=== PATIENT | male | born 1945 | race Caucasian/White ===

== ENCOUNTER 2020-09-20 20:09 | Inpatient (IN) | payer MEDICARE, OTHER ==
[~2020-09-20] VITALS: Ht 177.8 cm; Wt 78.0 kg
--- NOTE | ~2020-09-20 | OP ---
[address] [address] OPERATIVE REPORT Name: ADRIANNA ARRIOLA Room: [address] IN M.R.#: [id number] Admission: 09/20/20 Attend Phys: Abdulaziz Whyte MD Discharge: Date of : 41 Report #: [id number] THIS REPORT FOR: //name// cc: Manny Ballard MD, John MD ~ CC: Abdulaziz Ballard DATE OF SERVICE: 09/22/2020 SURGEON: Daniel Hobson DPM PREOPERATIVE DIAGNOSIS: Septic arthritis with deep tissue infection, left first metatarsophalangeal joint. POSTOPERATIVE DIAGNOSIS: Septic arthritis with deep tissue infection, left first metatarsophalangeal joint. PROCEDURES: 1. Left partial first ray resection to include removal of the distal first metatarsal and left great toe and sesamoids. 2. Incision and drainage, left foot. 3. Pedicled skin flap, left foot. ANESTHESIA: MAC. INJECTABLES: 30 mL of a 1:1 mixture of 0.5% Marcaine plain and 1% lidocaine plain. HEMOSTASIS: Left pneumatic ankle tourniquet at 250 mmHg. ESTIMATED BLOOD LOSS: Less than 2 mL. SPECIMENS: Left great toe, left distal first metatarsal and sesamoids. CULTURES: 1. Bone, left first metatarsal, aerobic/anaerobic. 2. Soft tissue, left foot, aerobic/anaerobic. SUTURES: 3-0 nylon. COMPLICATIONS: None. DESCRIPTION OF PROCEDURE: The patient was brought to the OR and remained in his hospital bed for the duration of the surgery. A well-padded left ankle pneumatic tourniquet was placed and a local anesthetic block was given to the [place] [id number] OPERATIVE REPORT Name: ROHAN ARRIOLAER Room: [address] IN M.R.#: [id number] Admission: 09/20/20 Attend Phys: Abdulaziz Whyte MD Discharge: Date of : 41 Report #: [id number] left distal foot. The MAC anesthesia was administered and the extremity was prepped and draped aseptically. After exsanguination and inflation of the tourniquet, a surgical scalpel was used to create a linear incision across the distal first metatarsal and then circumferentially around the hallux. There was florid gouty tophi draining from the great toe joint with a white pasty consistency. No purulence was noted. The tissue around the distal first metatarsal head was inflamed, friable and necrotic. The articular surface of the first metatarsal was severely denuded of cartilage with uric acid deposition. The joint capsule was thickened and inflamed consistent with acute gouty arthritis. I disarticulated the great toe, which was already dislocated on his own due to the wound and gout emanating from the joint. I then mobilized the distal first metatarsal head from the soft tissue, transected the capital fragment to the metatarsal with a sagittal saw. I excised the sesamoid bones and removed the flexor and extensor tendons to the great toe. Electrocautery was utilized for hemostasis and the skin margins were remodeled to facilitate closure. A plantar medial skin flap was mobilized dorsolaterally to help for final closure. The wound was flushed with sterile saline and dried. The plantar medial flap was then mobilized and sutured dorsolaterally with 3-0 nylon interrupted sutures. Complete closure of the surgical wound was achieved and the foot was cleansed, dried and dressed with Aquacel Ag, fluffs, ABDs and Kerlix gauze and Vadim bandage. The tourniquet was deflated prior to bandage application with normal vascular return to the elayne-incisional tissue. The patient left the OR alert and oriented with no pain or complications noted. By: 0645 0719Daniel Hobson DPM /najma
--- NOTE | ~2020-09-20 | CON ---
[address] [address] CONSULTATION Name: ADRIANNA ARRIOLA Room: [address] IN M.R.#: [id number] Admission: 09/20/20 Attend Phys: Abdulaziz Whyte MD Discharge: 09/26/20 Date of : 41 Report #: [id number] THIS REPORT FOR: //name// cc: Manny Ballard MD, John MD ~ DATE OF SERVICE: 09/25/2020 CHIEF COMPLAINT: Postoperative left foot with partial first ray resection for osteomyelitis. Polymicrobial surgical cultures with methicillin-sensitive Staph aureus and 2 other coagulase-negative Staphylococcus species. He is on parenteral linezolid with good tolerance. He had a low-grade temperature of 100.1 today, but feels well with stable appetite. He relates low-grade pain to the foot is somewhat improved. LABORATORY DATA: WBC 8.1, RBC 4.72, hemoglobin 13.9, hematocrit 42.0, platelets 289. BUN 16, creatinine 0.9, glucose 131. VITAL SIGNS: Temperature 100.1, pulse 84, respirations 17, blood pressure 175/70. PHYSICAL EXAMINATION: The incision is well approximated with a substantial decrease in erythema since yesterday. The inflammation is low grade with no gouty tophi from the punctate wound at the medial first metatarsal, as there was yesterday. No underlying fluctuance or crepitation. Immediate elayne-incisional capillary refill with no pallor/cyanosis, or signs of acute vascular embarrassment. IMPRESSION: Osteomyelitis, left first metatarsal with gout; type 2 diabetes mellitus; peripheral vascular disease; ataxia. PLAN: The incision was cleansed, dried and redressed with Aquacel Ag, ABD, Kerlix and Vadim. We will follow the patient during hospitalization. By: 1948 05Daniel Hobson DPM /nt
--- NOTE | ~2020-09-20 | CON ---
[address] [address] CONSULTATION Name: ADRIANNA ARRILOA Room: [address] ADM IN M.R.#: [id number] Admission: 09/20/20 Attend Phys: Abdulaziz Whyte MD Discharge: Date of : 41 Report #: [id number] THIS REPORT FOR: //name// cc: Manny Ballard MD, John MD ~ DATE OF SERVICE: 09/21/2020 ADMISSION DIAGNOSES: Ataxia/cellulitis, left foot with wound. HISTORY OF PRESENT ILLNESS: A 75-year-old male admitted through the Emergency Room with complaints of multiple falls and wounds to both lower extremities with noted purulence between the left first and second toes. The patient has recent history of chills and increased erythema to the dorsal aspect of the left foot. He relates a history of gouty arthritis to the left great toe joint. He has had worsening weakness with recurrent falls with associated lower extremity numbness and difficulty ambulating. He relates some similar weakness to both upper extremities. He denies type 2 diabetes mellitus or peripheral sensory neuropathy. He has a remote history of alcohol use. He denies injury to the left foot, the etiology of the wound to the lateral great toe is unknown. He is currently on parenteral ceftriaxone and oral doxycycline. A wound culture was submitted to the lab this evening. 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 PAST MEDICAL HISTORY: Left foot cellulitis, multiple leg abrasions, ataxia with worsening lower extremity weakness, left hallux ulceration, gouty arthritis. ALLERGIES: No known drug allergies. MEDICATIONS: Doxycycline, primidone, ceftriaxone, celecoxib, fentanyl, acetaminophen, clonazepam, potassium chloride, melatonin, diphenhydramine, scopolamine, meclizine, magnesium hydroxide, bisacodyl, ondansetron, promethazine. RADIOLOGY: X-rays of the left foot reveals cystic changes to the first MTP consistent with gouty arthritis, although septic arthritis cannot be excluded. No adin osteolysis noted. LABORATORY DATA: WBC 10.2, RBC 5.20, hemoglobin 15.9, hematocrit 46.1, platelets 196. BUN 12, creatinine 1.1, glucose 116, albumin 2.7. PHYSICAL EXAMINATION: VITAL SIGNS: Temperature 99.9, pulse 71, respirations 19, blood pressure 167/63. EXTREMITIES: There is nonblanchable erythema to the right dorsal foot with ulceration to the base of the left hallux. The wound penetrates down to the bone and I can visualize the articular cartilage of the [place] [address] CONSULTATION Name: ADRIANNA ARRIOLA Room: [address] IN [facility].#: [id number] Admission: 09/20/20 Attend Phys: Abdulaziz Whyte MD Discharge: Date of : 41 Report #: [id number] toe, he has severe hallux valgus deformity, and he is unable to flex or extend the left great toe to any degree. There is scant serous drainage on his bandage from the wound. He has palpable dorsalis pedis and posterior tibial pulses bilaterally. There is no pallor/cyanosis or signs of acute vascular embarrassment. The left hallux is painful to the touch with localized inflammation consistent with cellulitis. IMPRESSION: Septic arthritis, superimposed on gouty arthritis with concomitant cellulitis to the left foot. PLAN: Since he has a deep penetrating wound to the great toe joint with visible cartilage, and the great toe is nonfunctional, I recommend primary amputation. The patient is agreeable, now schedule him for surgery tomorrow. I will keep him n.p.o. past midnight with bed rest. By: 1928 49Daniel Hobson DPM /najma
--- NOTE | ~2020-09-20 | CON ---
[address] [address] CONSULTATION Name: ADRIANNA ARRIOLA Room: [address] IN M.R.#: [id number] Admission: 09/20/20 Attend Phys: Abdulaziz Whyte MD Discharge: Date of : 41 Report #: [id number] THIS REPORT FOR: //name// cc: Manny Ballard MD, John MD ~ DATE OF SERVICE: 09/23/2020 CHIEF COMPLAINT: Postoperative day #1 for left partial first ray resection for septic arthritis with gouty arthritis. He is on parenteral ceftriaxone and oral doxycycline with good tolerance. Surgical tissue cultures show gram-positive cocci on the Gram stain. Arterial Doppler shows 3 areas of stenosis to the left leg and more severe vasculopathy to the right leg. The right MALINDA is 0.32 with biphasic waveforms from the right common femoral artery, which becomes monophasic. The left MALINDA is 0.78 with multiple high-grade stenosis involving the left common femoral and superficial femoral arteries. He has been afebrile, appetite is fair, pain, mild to moderate. No new labs for review. PHYSICAL EXAMINATION: VITAL SIGNS: Temperature 102.0, pulse 68, respiration 17, blood pressure 153/69. EXTREMITIES: The incision is well coapted with no dehiscence, drainage or bleeding. There is no underlying fluctuance or crepitation. There is fairly high-grade erythema to the right dorsal foot that is nonblanchable. The foot is warm with no pallor/cyanosis, or signs of acute vascular embarrassment. No popliteal adenopathy or calf pain to the left lower extremity. IMPRESSION: Status post left partial first ray resection with primary closure, gout, septic arthritis, cellulitis. PLAN: The foot was cleansed and I applied a sterile compressive bandage. We will consult Vascular Surgery for further workup. I will allow the patient to place weight to the left heel for transfers to the commode with nurse assistance. Otherwise, he is to elevate the extremity and refrain from additional walking. By: 1723 1831Dhumberto Hobson DPM /najma
--- NOTE | ~2020-09-20 | CON ---
[address] [address] CONSULTATION Name: ADRIANNA ARRIOLA Room: [address] ADM IN M.R.#: [id number] Admission: 09/20/20 Attend Phys: Abdulaziz Whyte MD Discharge: Date of : 41 Report #: [id number] THIS REPORT FOR: //name// cc: Manny Ballard MD, John MD ~ DATE OF SERVICE: 09/22/2020 CHIEF COMPLAINT: Postoperative day-3 for left partial first ray resection for osteomyelitis and gouty arthritis. Surgical cultures growing Staph aureus, Staph epidermidis and Staph schleiferi. He is now on parenteral Zyvox 600 mg b.i.d. Awaiting culture sensitivities. Vascular Surgery evaluated the patient and feel he has adequate blood flow for left foot healing with no recommended intervention at present. The patient is resting comfortably, he has been afebrile with good appetite. He relates low-grade tenderness to the foot. He is being transferred to the hospital skilled unit today. Surgical pathology showed osteomyelitis to the distal first metatarsal extending to the proximal resection site. Soft tissue histology consistent with gout. LABORATORY DATA: WBC 7.1, RBC 4.38, hemoglobin 13.3, hematocrit 38.7, platelets 238. BUN 18, creatinine 0.9, glucose 115. PHYSICAL EXAMINATION: Temperature 99.8, pulse 58, respirations 16, blood pressure 157/67. The incision is well coapted with decreased erythema to the dorsal foot. There is increased erythema to the medial first metatarsal area with a small punctate wound with a small amount of visible tophi. I am unable to express more than some scant tophaceous crystals. No underlying fluctuance or crepitation. Immediate capillary refill to the elayne-incision. Palpable dorsalis pedis pulse with no pallor/cyanosis or signs of acute vascular embarrassment. IMPRESSION: Osteomyelitis and chronic gout, left first metatarsophalangeal region. PLAN: The incision was cleansed and redressed with Aquacel Ag, ABDs, Kerlix and Vadim. I will allow weightbearing to the left heel for pivot transfers with the therapist. Otherwise, he is to remain nonweightbearing and elevate the leg. Awaiting final culture sensitivities. I discussed the case with Dr. Jang, who discontinued the doxycycline and added Zyvox. By: 1229 1239Daniel Hobson DPM /najma
--- NOTE | ~2020-09-20 | CON ---
[address] [address] CONSULTATION Name: ADRIANNA ARRIOLA Room: [address] ADM IN M.R.#: [id number] Admission: 09/20/20 Attend Phys: Abdulaziz Whyte MD Discharge: Date of : 41 Report #: [id number] THIS REPORT FOR: //name// cc: Manny Ballard MD, John MD ~ DATE OF SERVICE: 09/24/2020 CHIEF COMPLAINT: Status post left partial first ray resection for osteomyelitis with septic arthritis and chronic tophaceous gout. Surgical cultures growing Staphylococcus epidermidis and Staphylococcus schleiferi. He is on parenteral ceftriaxone and oral doxycycline with good tolerance. He has been afebrile, appetite is somewhat improved. Pain is decreased, he has remained nonweightbearing to the left foot. Arterial Doppler showed significant vasculopathy to both lower extremities with stenosis to left SFA. LABORATORY DATA: WBC 8.2, RBC 4.29, hemoglobin 13.0, hematocrit 38.3, and platelets 156. BUN 14, creatinine 1.0, and glucose 118. PHYSICAL EXAMINATION: Temperature 97.5, pulse 61, respirations 16, and blood pressure 154/60. Surgical incision is well coapted with no dehiscence or signs of vascular impairment to the elayne-incision. There is no underlying fluctuance or crepitation. Persistent inflammation to the dorsal -- distal foot, but decreased from yesterday. Palpable dorsalis pedis pulse. No signs of acute vascular embarrassment. Petechiae to dorsal foot somewhat resolving and less inflamed. IMPRESSION: Status post partial first ray resection with septic arthritis and tophaceous gouty arthritis. PLAN: The foot was cleansed and redressed with Aquacel Ag, ABDs, Kerlix and Vadim bandage. The patient to remain nonweightbearing, although I will allow the patient to place weight to the heel for pivot transfers with assistance only. By: 1534 1851Dhumberto Hobson DPM /najma
[2020-09-20 20:10] VITALS: BP 125/56
[2020-09-20] MEDS ORDERED: LISINOPRIL2.5 MG PO (20:17)
[2020-09-20] MEDS ORDERED: CLONAZEPAM 0.50.5 M1 PO (20:17)
[2020-09-20] MEDS ORDERED: XARELTO20 MG PO (20:17)
[2020-09-20] MEDS ORDERED: MYSOLINE50 MG PO (20:18)
[2020-09-20 21:18] LABS: ABSOLUTE EOSINOPHILS 0.1 thou/uL (0.0-0.7); ABSOLUTE LYMPHOCYTES 1.3 thou/uL (0.8-5.3); ABSOLUTE MONOCYTES 1.4 thou/uL (0.0-1.2); ABSOLUTE NEUTROPHILS 7.3 thou/uL (1.6-8.1); BASOPHILS 0.4 %; EOSINOPHILS 0.6 %; HEMATOCRIT 46.1 % (42.0-52.0); HEMOGLOBIN 15.9 gm/dL (14.0-18.0); MCH 30.5 pg (26.0-34.0); MCHC 34.4 g/dL (28.0-37.0); MCV 88.7 fL (80.0-100.0); MPV 8.7 fl. (7.2-11.1); NUCLEATED RBCS 0 /100WBC; PLATELET COUNT* 196 thou/uL (150-400); RDW-CV 13.2 % (10.5-14.5); WBC 10.2 thou/uL (4.0-11.0)
[2020-09-20 21:25] LABS: CALCIUM 8.7 mg/dL (8.5-10.1); CREATININE 1.3 mg/dL (0.6-1.3); POTASSIUM 3.5 mmol/L (3.5-5.1)
[2020-09-20 21:28] LABS: APTT 36.6 Seconds (25.0-31.3); INR 1.4; PROTIME 14.8 Seconds (9.20-11.50)
[2020-09-20 21:29] LABS: ALBUMIN 3.4 g/dL (3.4-5.0); MAGNESIUM 1.9 mg/dL (1.8-2.4); PHOSPHORUS* 2.1 mg/dL (2.5-4.9); TOTAL BILIRUBIN 1.1 mg/dL (<0.1-1.0); TOTAL PROTEIN 7.5 g/dL (6.4-8.2)
[2020-09-20 21:39] LABS: BE -0.9 mmol/L (-2 to +3); PCO2 36.2 mmHg (35.0-45.0); PO2 107.4 mmHg (75.0-100.0); pH 7.421 (7.340-7.450)
[2020-09-20 22:20] LABS: URINE BILIRUBIN NEGATIVE (Negative); URINE BLOOD TRACE (Negative); URINE CLARITY CLEAR; URINE COLOR YELLOW; URINE GLUCOSE-RANDOM NEGATIVE (Negative); URINE KETONES NEGATIVE (Negative); URINE LEUKOCYTES-REFLEX NEGATIVE (Negative); URINE NITRITE-REFLEX NEGATIVE (Negative); URINE PROTEIN NEGATIVE (Negative); URINE SPECIFIC GRAVITY 1.015 (1.005-1.030); URINE UROBILINOGEN 0.2 E.U./dl (0.2-1.0)
[2020-09-21] VITALS (8 sets, daily range): BP systolic 123–167; BP diastolic 42–63
[2020-09-21 09:56] LABS: ALBUMIN 2.7 g/dL (3.4-5.0); CALCIUM 8.3 mg/dL (8.5-10.1); CREATININE 1.1 mg/dL (0.6-1.3); DIRECT BILIRUBIN 0.2 mg/dL (<0.1-0.3); MAGNESIUM 2.1 mg/dL (1.8-2.4); PHOSPHORUS* 2.2 mg/dL (2.5-4.9); TOTAL BILIRUBIN 0.9 mg/dL (<0.1-1.0); TOTAL PROTEIN 6.5 g/dL (6.4-8.2)
--- NOTE | 2020-09-21 14:06 | EKG ---
[place] [address] ELECTROCARDIOGRAM REPORT Name: ADRIANNA ARRIOLA Room: [address] ADM IN M.R.#: [id number] Admission: 09/20/20 Attend Phys: Abdulaziz Whyte, Discharge: Date of : 41 Date of Service: 09/20/202014 Report #: [id number] THIS REPORT FOR: //name// 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
[2020-09-22 05:21] LABS: HEMATOCRIT 38.3 % (42.0-52.0); MCH 30.2 pg (26.0-34.0); MCHC 33.8 g/dL (28.0-37.0); MCV 89.4 fL (80.0-100.0); MPV 8.7 fl. (7.2-11.1); RBC 4.29 mil/uL (4.50-6.00); WBC 8.2 thou/uL (4.0-11.0)
[2020-09-22 05:35] LABS: CALCIUM 8.3 mg/dL (8.5-10.1); MAGNESIUM 2.1 mg/dL (1.8-2.4); POTASSIUM 3.8 mmol/L (3.5-5.1)
[2020-09-22 07:48] VITALS: BP 149/68
--- NOTE | 2020-09-22 15:26 | 2DMMODE ---
[place] [address] 2 D/M-MODE ECHOCARDIOGRAM Name: ADRIANNA ARRIOLA Room: [address] IN [facility]#: [id number] Admission: 09/20/20 Attend Phys: Abdulaziz Whyte, Discharge: Date of : 41 Date of Service: 09/22/20 1526 Report #: [id number] THIS REPORT FOR: cc: Manny Ballard MD, John MD Holkins, John M. MD [facility] ~ APPROVED REPORT Study performed: 09/22/2020 11:35:54 EXAM: Comprehensive 2D, Doppler, and color-flow Echocardiogram Patient Location: In-Patient Room #: [facility] Status: routine BSA: 1.95 HR: 55 bpm BP: 149/68 mmHg Rhythm: NSR Other Information Study Quality: Good Indications CVA/TIA Echo Enhancing Agent Indication: Rule out Shunt Agent(s) / Amount(s) Used: Agitated Saline 10 cc 2D Dimensions IVSd: 10.74 (7-11mm) LVOT Diam: 19.60 (18-24mm) LVDd: 47.77 mm PWd: 9.28 (7-11mm) Ascending Ao: 30.05 (22-36mm) LVDs: 27.73 (25-40mm) Aortic Root: 32.14 mm Volumes Left Atrial Volume (Systole) LA ESV Index: 24.30 mL/m2 Aortic Valve AoV Peak Deonte.: 1.43 m/s AO Peak Gr.: 8.18 mmHg LVOT Max P.09 mmHg AO Mean Gr.: 3.99 mmHg LVOT Mean P.56 [place] [address] 2 D/M-MODE ECHOCARDIOGRAM Name: FLAKOVILLALBA Room: [address] IN .R.#: [id number] Admission: 09/20/20 Attend Phys: Abdulaziz Whyte, Discharge: Date of : 41 Date of Service: 09/22/20 1526 Report #: [id number] LVOT Max V: 1.01 m/s AO V2 VTI: 31.08 cm LVOT Mean V: 0.56 m/s NOELLE (VTI): 2.07 cm2 LVOT V1 VTI: 21.30 cm Mitral Valve E/A Ratio: 1.06 MV Decel. Time: 217.55 ms MV E Max Deonte.: 0.94 m/s MV PHT: 63.09 ms MVA (PHT): 3.49 cm2 TDI E/Lateral E': 6.71 E/Medial E': 7.83 Medial E' Deonte.: 0.12 m/s Lateral E' Deonte.: 0.14 m/s Pulmonary Valve PV Peak Deonte.: 0.81 m/s PV Peak Gr.: 2.63 mmHg Tricuspid Valve RAP Estimate: 5.00 mmHg TR Peak Gr.: 43.72 mmHg RVSP: 48.00 mmHg PA Pressure: 48.00 mmHg Left Ventricle The left ventricle is normal size. There is normal LV segmental wall motion. There is normal left ventricular wall thickness. Left ventricular systolic function is normal. The left ventricular ejection fraction is within the normal range. LVEF is 55-60%. The left ventricular diastolic function is normal. Right Ventricle The right ventricle is normal size. The right ventricular systolic function is normal. Atria The left atrium size is normal. The interatrial septum is intact with no evidence for an atrial septal defect. The right atrium size is normal. Aortic Valve Aortic valve is thickened but has adequate excursion. No aortic regurgitation is present. There is no aortic valvular stenosis[place] [address] 2 D/M-MODE ECHOCARDIOGRAM Name: ADRIANNA ARRIOLA Room: [address] IN [facility]#: [id number] Admission: 09/20/20 Attend Phys: Abdulaziz Whyte, Discharge: Date of : 41 Date of Service: 09/22/20 1526 Report #: [id number] The mitral valve is normal in structure. Mild mitral regurgitation. No evidence of mitral valve stenosis. Tricuspid Valve The tricuspid valve is normal in structure. Mild tricuspid regurgitation. Moderate pulmonary hypertension. Pulmonic Valve The pulmonary valve is normal in structure. There is no pulmonic valvular regurgitation. Great Vessels The aortic root is normal in size. IVC is normal in size and collapses >50% with inspiration. Pericardium There is no pericardial effusion. <Conclusion> The left ventricle is normal size. There is normal left ventricular wall thickness. Left ventricular systolic function is normal. The left ventricular ejection fraction is within the normal range. LVEF is 55-60%. The left ventricular diastolic function is normal. The right ventricle is normal size. The left atrium size is normal. Aortic valve is thickened but has adequate excursion. No aortic regurgitation is present. There is no aortic valvular stenosis. The mitral valve is normal in structure. Mild mitral regurgitation. The tricuspid valve is normal in structure. Mild tricuspid regurgitation. Moderate pulmonary hypertension. IVC is normal in size and collapses >50% with inspiration. There is no pericardial effusion. There is normal LV segmental wall motion. The interatrial septum is intact with no evidence for an atrial septal defect. <ELECTRONICALLY SIGNED> By: Manny Solis MD, FACC 09/22/20 1526 1526 1526 Manny Solis MD, FACC /INF
[2020-09-22 16:13] VITALS: BP 161/58
[2020-09-22 18:58] VITALS: BP 165/62
[2020-09-22 23:06] LABS: HEPATITIS B SURFACE AG Negative (Negative)
[2020-09-23 00:16] VITALS: BP 148/54
[2020-09-23 02:06] LABS: GLYCOHEMOGLOBIN (HGB A1C) 6.1 % (4.8-5.6)
[2020-09-23 04:18] VITALS: BP 178/78
[2020-09-23 07:35] VITALS: BP 166/66
[2020-09-23 10:07] LABS: ANA INTERPRETATION Negative (Negative)
[2020-09-23 12:00] VITALS: BP 176/75
[2020-09-23 16:00] VITALS: BP 153/69
[2020-09-23 20:38] VITALS: BP 157/62
[2020-09-24 05:32] LABS: CALCIUM 8.1 mg/dL (8.5-10.1); POTASSIUM 3.6 mmol/L (3.5-5.1)
[2020-09-24 07:30] VITALS: BP 154/60
[2020-09-24 16:59] VITALS: BP 143/72
[2020-09-24 20:40] VITALS: BP 148/64
[2020-09-25 04:30] LABS: HEMATOCRIT 38.7 % (42.0-52.0); HEMOGLOBIN 13.3 gm/dL (14.0-18.0); MCH 30.3 pg (26.0-34.0); MCHC 34.4 g/dL (28.0-37.0); MCV 88.2 fL (80.0-100.0); MPV 8.1 fl. (7.2-11.1); RBC 4.38 mil/uL (4.50-6.00); RDW-CV 13.3 % (10.5-14.5); WBC 7.1 thou/uL (4.0-11.0)
[2020-09-25 04:44] LABS: CREATININE 0.9 mg/dL (0.6-1.3); MAGNESIUM 2.2 mg/dL (1.8-2.4); POTASSIUM 3.7 mmol/L (3.5-5.1)
[2020-09-25 08:10] VITALS: BP 168/67
--- NOTE | 2020-09-25 15:07 | PATH ---
[address] [address] PATHOLOGY RPT PROCEDURE Name: ADRIANNA ARRIOLA Room: [address] IN .R.#: [id number] Admission: 09/20/20 Date of : 41 Discharge: Report #: [id number] Path Case #: [id number] [facility] Accession Number: [id number] . 01 Material submitted: . toe - LEFT GREAT TOE WITH DISTAL FIRST METATARSAL AND SESMOIDS. Modifiers: left, great . 01 Clinician provided ICD-10: L03.032 N17.0 . 01 Clinical history: . SEPTIC ARTHRITIS LEFT FIRST TOE MULTIPLE ABRASIONS . 02 Diagnosis: Left great toe with distal first metatarsal and sesamoids: - Benign great toe with nonspecific ulceration, acute inflammation of soft tissues and osteomyelitis extending to black inked disarticulation marginal aspect as well as black inked surface of separate bone segment adjacent to articular aspect. (See comment) . (DAVID:dian; 09/25/2020) [facility] 09/25/2020 1458 Local . 02 Comment: Osteomyelitis is seen to extend to the disarticulation margin at the edge of the articular surface in A3 and bone segment within the soft tissues thought likely to be sesamoid and submitted in A4 shows osteomyelitis extending to the black inked edge as well. Also noted in the soft tissue of A4 is a vague palisading of epithelioid, possible multinucleated cells around amorphous material suggestive of gout. . (DAVID:mml; 09/25/2020) . 02 Electronically signed: . Placido Meyers MD, Pathologist NPI- [id number] . 01 Gross description: . Received in formalin labeled "Adrianna Arriola, left great toe with distal metatarsal and sesamoid" and additionally labeled on the requisition as, "distal first metatarsal" is a toe disarticulation specimen measuring 6.7 x 3.7 x 3.0 cm. The distal aspect displays a miller-yellow nail measuring 2.2 x 1.8 x 0.4 cm. The proximal aspect has a smooth skin and soft tissue margin and a concave cartilage covered disarticulation[place] [address] PATHOLOGY RPT PROCEDURE Name: ADRIANNA ARRIOLA Room: [address] ADM IN .R.#: [id number] Admission: 09/20/20 Date of : 41 Discharge: Report #: [id number] Path Case #: [id number] at the margin is street-brown and discolored. A red-miller hemorrhagic/granular lesion is identified on the dorsal aspect of the foot, located 0.9 cm from the nail, measuring 1.2 x 0.7 x 0.1 cm. This lesion is located 1.6 cm from the closest skin and soft tissue margins and 3.1 cm from the bone disarticulation. Tafe Lecturer longitudinal sections, moving from distal to disarticulation aspects are submitted in cassettes A1-A3 following decalcification. Additional sections including the street-brown and discolored area are submitted in cassettes A4 following decalcification. ([facility]; 09/23/2020) [facility] 09/25/2020 1403 Local . 02 Pathologist provided ICD-10: L97.529, M79.9, M86.172 . 02 CPT . 001963, 026410 Specimen Comment: A courtesy copy of this report has been sent to [phone] Specimen Comment: [id number] Specimen Comment: Report sent to / DR CONKLIN Performed at: [address] [facility] [address], [place], [place] [id number] MD Gregory Sprague MD Phone: [phone] Performed at: [address] [place], [place] [id number] MD Placido Meyers MD Phone: [phone]
[2020-09-25 16:00] VITALS: BP 178/78
[2020-09-25 19:30] VITALS: BP 162/58
[2020-09-26] VITALS: BP 148/57
[2020-09-26 04:00] VITALS: BP 161/67
[2020-09-26 07:55] VITALS: BP 157/67
[2020-09-26 08:23] VITALS: BP 157/67
[2020-09-26] MEDS ORDERED: CLONAZEPAM 1 MG1 M1 PO (14:07)
[2020-09-26] MEDS ORDERED: CELEBREX 200 M200 M1 PO (14:08)
[2020-09-26] MEDS ORDERED: LINEZOLID600 MG/300 IV (14:08)
== END 2020-09-26 15:41 | DRG 853 ==
LOC: M.ERS 20:09 → M.3W 21:48 → M.TBA-ER 21:48 → M.3W 09-21 01:36
PROVIDERS: Personal Emergency Response Attendant; ADMIT Internal Medicine; ATTEND Internal Medicine
PROC: 0Y6Q0Z3 Detachment at Left 1st Toe, Low, Open Approach (ICD-10-PCS; principal; 2020-09-22)
PROC: 02HV33Z Insertion of Infusion Device into Superior Vena Cava, Percutaneous Approach (ICD-10-PCS; 2020-09-26)
PROC: B548ZZA Ultrasonography of Superior Vena Cava, Guidance (ICD-10-PCS; 2020-09-26)
DX: A41.9 Sepsis, unspecified organism (principal); N17.0 Acute kidney failure with tubular necrosis; E43 Unspecified severe protein-calorie malnutrition; M00.9 Pyogenic arthritis, unspecified; L03.116 Cellulitis of left lower limb; M86.8X7 Other osteomyelitis, ankle and foot; L97.929 Non-pressure chronic ulcer of unspecified part of left lower leg with unspecified severity; G11.9 Hereditary ataxia, unspecified; L03.032 Cellulitis of left toe; S91.112A Laceration without foreign body of left great toe without damage to nail, initial encounter; M10.9 Gout, unspecified; X58.XXXA Exposure to other specified factors, initial encounter; E80.6 Other disorders of bilirubin metabolism; E53.8 Deficiency of other specified B group vitamins; E87.6 Hypokalemia; E11.51 Type 2 diabetes mellitus with diabetic peripheral angiopathy without gangrene; I10 Essential (primary) hypertension; Z20.828 Contact with and (suspected) exposure to other viral communicable diseases; Y93.89 Activity, other specified; Z79.899 Other long term (current) drug therapy; Y92.89 Other specified places as the place of occurrence of the external cause; Y99.8 Other external cause status; Z87.891 Personal history of nicotine dependence; Z72.89 Other problems related to lifestyle; Z86.718 Personal history of other venous thrombosis and embolism; Z68.24 Body mass index [BMI] 24.0-24.9, adult; Z86.711 Personal history of pulmonary embolism

== ENCOUNTER 2020-09-26 14:48 | Inpatient (IN) | payer MEDICARE, OTHER ==
[~2020-09-26] VITALS: Ht 177.8 cm; Wt 65.2 kg
[~2020-09-26 14:48] MED LIST: CELEBREX 200 M200 M1 PO; CLONAZEPAM 0.50.5 M1 PO; CLONAZEPAM 1 MG1 M1 PO; LINEZOLID600 MG/300 IV; LISINOPRIL2.5 MG PO; MYSOLINE50 MG PO; XARELTO20 MG PO
[2020-09-26 15:40] VITALS: BP 152/60
--- NOTE | 2020-09-26 17:07 | NUR ---
ALERT AND ORIENTED X4. ASESSMENT CHARTED. C/O PAIN IN LEFT ELBOW AND LEFT FOOT. DRESSING DRY AND INTACT OVER LEFT FOOT. LEFT TOES WARM AND PINK WITH GOOD CAPILLARY REFILL. ORIENTED TO ROOM AND BED CONTROLS. CALL LIGHT WITHIN REACH. FALL PRECAUTIONS IN PLACE. BED ALARM AND CHAIR ALARM USED. HAS MULTIPLE DRY SCABS ON LOWER LEGS.
--- NOTE | 2020-09-26 17:13 | NUR ---
LEFT ELBOW DARK PINK, WARM AND PAINFUL. WILL LET DR KNOW.
[2020-09-26 20:15] VITALS: BP 140/51
--- NOTE | 2020-09-26 23:27 | NUR ---
ASSUMED CARE AT 1930. PATIENT RESTING IN BED. ASSISTED WITH TURNS. PICC LINE DRESSING C/D/I AND FLUSHES WELL. TAKES PILLS WHOLE WITH WATER. SPEECH SHAKY, BUT MAKES NEEDS KNOWN. VOIDS PER URINAL. LT ELBOW ELEVATED ON PILLOW. NWB LLE, BUT RESTING IN BED. GOT FIRST DOSE OF ZYVOX THIS PM, TOLERATED WELL. DSSG TO LT TOE C/D/I. REFUSED COLACE. NO C/O PAIN. CALL LITE IN REACH, BED ALARM ON, HOURLY ROUNDS CONTINUE.
[2020-09-27 04:59] LABS: HEMOGLOBIN 13.9 gm/dL (14.0-18.0); MCH 29.5 pg (26.0-34.0); MCHC 33.2 g/dL (28.0-37.0); MCV 88.9 fL (80.0-100.0); MPV 8.6 fl. (7.2-11.1); RBC 4.72 mil/uL (4.50-6.00); RDW-CV 13.3 % (10.5-14.5); WBC 8.1 thou/uL (4.0-11.0)
[2020-09-27 05:11] LABS: CALCIUM 8.2 mg/dL (8.5-10.1); CREATININE 0.9 mg/dL (0.6-1.3); POTASSIUM 3.7 mmol/L (3.5-5.1)
--- NOTE | 2020-09-27 05:14 | NUR ---
SLEPT OFF AND ON. HAS MANY RANDOM MOVEMENTS OF LEGS AND ARMS. C/O NEEDING TO HAVE BM. ATTEMPTED TO HAVE PATIENT STAND TO PIVOT TO BSC, PATIENT TOO UNSTEADY TO STANDPIVOT. RETURNED TO BED AND HAD BM PER BEDPAN. SKIN CARE DONE, MOISTURE BARRIER APPLIED. USING CALL LITE APPROPRIATELY. NO C/O PAIN. HOURLY ROUNDS CONTINUE. BED ALARM ON. CALL LITE IN REACH.
[2020-09-27 07:30] VITALS: BP 175/70
--- NOTE | 2020-09-27 17:57 | NUR ---
ASSESSMENT COMPLETED DOCUMENTED THIS MORNING. PATIENT DEMONSTRATES VERY ATAXIC MOTOR MOVEMENTS, UNABLE TO CONTROL OR ASSIST IN HIS TRANSFERS. HAS BEEN CONTINENT OF B&B WITH SMALL AMOUNT OF INCONT PRIOR TO USE OF BEDPAN. WAS ASSISTED UP TO RECLINER AT THE BEDSIDE FOR BREAKFAST AND HIS BLE WERE JERKING AND MOVING SO MUCH HE BUMPED HIS LEFT FOOT ON THE FRAME OF THE OVERBED TABLE CAUSING IT TO BLEED THROUGH THE DRESSING. DR. NAYAK IN AND TOOK DRESSING DOWN TO ASSESS, IT WAS REDRESSED BY THIS NURSE WITH WHAT WAS TAKEN OFF BY DR. NAYAK WITH EXTRA PADDING. KLONOPIN 2 MG PO BID ROUTINELY STARTED THIS IS HIS HOME DOSE THAT HIS STATES KEEPS HIS ATAXIC MOVEMENTS UNDER CONTROL AND ALLOWS HIM TO FEED HIM SELF AND ASSIST WITH TRANSFERS.
[2020-09-27 20:19] VITALS: BP 170/76
--- NOTE | 2020-09-27 23:05 | NUR ---
ASSUMED CARE AT 1929. BED ALARM ON. AT BEGINNING OF THE SHIFT, PATIENT WAS ALERT, ORIENTED, COOPERATIVE AND ABLE TO DISCUSS HIS MEDICINE ROUTINE, ESPECIALLY CLONAZEPAM ROUTINE SCHEDULE. DR ABRAMS CAME IN AROUND 1999 AND REDRESSED PATIENT'S WOUND. DR. ABRAMS TOLD PATIENT ABOUT HIS DAY [employer]UNTING. PATIENT VERBALIZED UNDERSTANDING AND PARTICIPATED IN THIS CONVERSATION. AT HS TOOK PILLS, SEE MAR, VOIDED PER URINAL. PICC LINE TO RUE FLUSHES WELL AND ABX INSTILLED THROUGH IT. AT ABOUT 2129 PATIENT STARTED CLIMBING OUT OF BED, WANTING TO SLEEP ON THE COUCH ACROSS THE ROOM. INSTRUCTED THAT HE WAS NOT ABLE TO MAKE ACROSS THE ROOM, AND THE COUCH IS NOT EASY TO GET OUT OF. IT TOOK THREE STAFF MEMBERS TO CONVINCE HIM OF THIS AND THAT HE WAS IN A HOSPITAL BED WHERE HE CAN REST SAFELY. A LITTLE LATER HE SAID HE WANTED TO WATCH CHANNEL 9 NEWS, AND WAS ABLE TO STATE THAT IT WAS ON 12 ON THE TV. AFTER THE NEWS STARTED (DELAYED BECAUSE OF FOOTBALL) PATIENT AGAIN SOUNDED BED ALARM TRYING TO CLIMB OUT THE BOTTOM, WANTING TO URINATE. AGAIN INSTRUCTED HE IS IN THE HOSPITAL AND URINAL OFFERED, AND HE USED IT. PATIENT VERY RESTLESS. ABLE TO RECOUNT DR. ABRAMS'S STORY ABOUT DEER HUNTING WITH GREAT ACCURACY. VERY CLOSE OBSERVATION BY NURSING AT THIS ITME. TAKES PILLS WHOLE WITH WATER. LEGS ARE IN NEAR CONSTANT MOVEMENT IN BED, KICKING COVERS OFF AND ON. DRESSING TO LT FOOT C/D/I. MEDICATED FOR PAIN WITH GOOD RESPONSE. BED ALARM ON. CALL LITE IN REACH.
--- NOTE | 2020-09-28 05:11 | NUR ---
AFTER VERY CLOSE SUPERVISION, PATIENT DID FINALLY SETTLE DOWN AND SLEEP FROM ABOUT 2330 TO 0415. A FEW TIMES HE NEEDED HELP WITH HIS COVERS, WANTING LESS OR MORE AT TIMES, BUT HE RETURNED TO SLEEP. VOIDED PER URINAL AT 0415. COOPERATIVE, AND HIS SPEECH HAS IMPROVED, BEING EASIER TO UNDERSTAND AND NOT SOUNDING SHAKY. CLOSE OBSERVATION CONTINUES. CALL LITE IN REACH. BED ALARM ON.
[2020-09-28 08:16] VITALS: BP 176/84
--- NOTE | 2020-09-28 18:03 | NUR ---
assessment completed as documented this morning. patient assisted up to recliner for breakfast and cares provided. requested to return to bed to use the bedpan and has been resting quietly all day with at the bedside. transfers with max assist of 2 r/t ataxia. has been pleasant and cooperative today with no aggressive outbursts or agitation. callight within reach.
[2020-09-28 19:59] VITALS: BP 127/70
--- NOTE | 2020-09-28 21:57 | NUR ---
ASSUMED CARE AT 193. PATIENT HAD BECOME MORE AGGITATED AND HARDER TO REDIRECT NEAR THE END OF THE DAY SHIFT, AND THIS NURSE OBSERVED PATIENT DURING CHANGE OF SHIFT REPORT TRYING TO GET OUT OF BED DESPITE BED ALARM AND REPEATED INSTRUCTIONS TO PREVENT INJURY. HE IS UNSAFE TO STAND WITHOUT ASSISTANCE AND IS NWB TO E. RITA CABALLERO (DAY SHIFT) NOTIFIED DR. CESPEDES AND HE ORDERED NEW MEDS OF XYPREXA AND XANAX. XYPREXA GIVEN AT 2002, SEE MAR. PATIENT STILL, OF THIS WRITING, IMPULSIVE, VERY HARD TO REDIRECT, AND ATTEMPTING TO PULL ON IV TUBING. PATIENT EXHIBITS ATAXIA BUT ALSO IMPULSIVE BEHAVIOR. HE TRIED TO STRIKE A BUZZSAW OPERATOR BY THROWING THE CALL LITE AROUND 2129. PATIENT IS ABLE TO UNDERSTAND DIRECTIONS BUT DOES NOT ALWAYS COMPLY WITH REQUESTS TO COMPLETE TASKS. THIS NURSE IN ROOM CONSTANTLY DURING ZYVOX IVPB TO PREVENT HIM FROM PULLING OUT PICC STARTING AT 2156. HAS VOIDED TWICE PER URINAL WITH NURSING HELP, AND USED BED [place], THUS TOILETING NEEDS ARE TAKEN CARE OF. VERY CLOSE OBSERVATION CONTINUES. TAKES PILLS WHOLE WITH WATER, 1-2 AT A TIME. TURNS SELF VERY EASILY. NO C/O PAIN. BED ALARM ON. CALL LITE IN REACH.
--- NOTE | 2020-09-29 01:23 | NUR ---
STILL RESTLESS. PICKING AT ALL CLOTHING AND LINENS. HAS KICKED OFF ALL LINENS AND REMOVED GOWN. C/O JUST WANTING A SHEET. THIS DONE. BED ALARM ON. FREQUENT OBSERVATION CONTINUES. TURNED SELF TO BACK.
--- NOTE | 2020-09-29 02:56 | NUR ---
STILL WIDE AWAKE. PICKING AT LINENS, PULLING THEM UP SO HIGH THEY END UP AROUND HIS WAIST OR CHEST, NURSING ASSISTS TO GET THEM BACK DOWN OVER LEGS AND FEET. VERY RESTLESS. MOVING AROUND NEARLY CONSTANTLY. REFUSES PILLOWS. CLOSE OBSERVATION CONTINUES. CALL LITE IN REACH. BED ALARM ON.
--- NOTE | 2020-09-29 04:49 | NUR ---
HAS NOT SLEPT AT ALL THIS SHIFT DESPITE RECEIVING ZYPREXA AND XANAX. SEE MAR. PATIENT HAS BEEN PULLING AT SHEETS ALL NIGHT LONG, KNOTTING THEM UP. THROWS PILLOWS ON FLOOR. BED MOVED ABOUT 8 INCHES AWAY FROM THE WALL BECAUSE HE WAS PULLING ON THE CORDS FOR THE CHAIR ALARMS MOUNTED ON THE WALL AND PLUGGED INTO SAME WALL. WAS PULLING ON LIGHT SWITCH OVER AND OVER AGAIN, TURNING IT OFF AND ON. ABSOLUTELY HAS NOT STOPPED MOVING ALL NIGHT. PATIENT'S BED LOCKED IN THE FLAT POSITION PER HIS REQUEST AND FOR SAFETY. LESS ANGRY AT THIS TIME. FREQUENT OBSERVATION THROUGH SHIFT IN ORDER TO ENSURE PATIENT SAFETY. CALL LITE IN REACH. BED ALARM ON.
[2020-09-29 08:00] VITALS: BP 179/65
--- NOTE | 2020-09-29 16:48 | NUR ---
PATIENT FLAILING ARMS AND LEGS THIS AM WHEN THIS NURSE ROUNDED ON PATIENT FOR ASSESSMENT. PATIENT IS HARD TO UNDERSTAND AT TIMES. KLONOPIN BID GIVEN ORDERED THIS AM. PATIENT WAS ABLE TO SETTLE DOWN AND PARTICIPATE IN THERAPIES. PATIENT LEGS VERY SHAKEY WHEN UP TO BSC, PATIENT DOES BETTER WHEN LIFTED AND PIVOTS TO TRANSFER. LEFT FOOT DRESSING IN PLACE, TRANSFER FULL WEIGHT BEARING WITH SURGICAL SHOE IN PLACE. PATIENT HERE THIS AFTERNOON AND REQUESTING TO SPEAK WITH DOCTOR. DR. COTTER HERE TO SPEAK WITH . NEURO RECONSULTED FOR REHAB ADMISSION.
[2020-09-29 19:00] VITALS: BP 143/54
--- NOTE | 2020-09-30 05:15 | NUR ---
ASSUMED PT'S CARE THIS SHIFT. PT ORIENTED TO SELF. SOME SPEECH IMPEDIMENT. EXTREMELY JERGY AND UNSTEADY. MEDS GIVEN PER EMAR. PRN AMBIEN GIVEN ONETIME. PT SLEPT VERY WELL. DID ATTEMPT ONE TIME TO GET OUT OF BED. URINAL PROVIDED AND PT VOIDED AT THAT TIME. CONTINUED TO SLEEP WELL. Q2 TURN. FALL PRECAUTION IN PLACE. CALL LIGHT WITHIN REACH. HOURLY ROUNDINGS MADE. WILL CONTINUE TO MONITOR.
[2020-09-30 08:04] VITALS: BP 168/67
--- NOTE | 2020-09-30 14:01 | NUR ---
AM ASSESSMENT AND VITAL SIGNS COMPLETED DOCUMENTED. PT HAS BEEN PLEASANT AND COOPERATIVE. PT CONTINUES TO HAVE UNCONTROLLED MOVEMENT OF HIS ARMS AND LEGS AND IS A MAX ASSIST OF TWO FOR TRANSFERS. PT USES A URINAL WITH MOD ASSIST AND HE USED THE COMMODE TO HAVE A BM. PT WAS PARTIALLY INCONTINENT OF BM DURING TRANSFER AND HE IS DEPENDENT WITH [facility] AND CLOTHING MANAGEMENT. FALL PRECAUTIONS AND HOURLY ROUNDING CONTINUE.
--- NOTE | 2020-09-30 14:10 | NUR ---
INITIAL ASSESSMENT: PATIENT ADMITTED TO THE ACUTE IN REHAB UNIT ON 09/26/20 WITH A DIAGNOSIS OF CEREBELLAR ATAXIA. PATIENT ALERT AND ORIENTED TO SELF. CM SPOKE TO PT'S SPOUSE TO COMPLETE CM ASSESEMENT. PT RESIDES AT HOME WITH SPOUSE AND SHE ASSISTED THE PT NEEDED PRIOR TO ADMIT. PT USED A WALKER FOR MOBILITY PRIOR TO ADMIT. PT ALSO OWNS A SHOWER BENCH AND WHEELCHAIR, BUT DID NOT USE THE WHEELCHAIR PRIOR TO ADMIT. PT HAS 0 HX OF HH. PT HAS HX OF SNF AT [facility]. CM ORIENTED PT'S SPOUSE TO THE REHAB UNIT AND PROCESSES, TEAM CONFRENCE MEETING, RESIDENTS RIGHTS INFO, AND ROLE OF CM. CM WILL REMAIN AVAILABLE TO ASSIST AND FOLLOW NEEDED.
[2020-09-30 19:00] VITALS: BP 120/66
[2020-10-01 06:02] LABS: ABSOLUTE BASOPHILS 0.1 thou/uL (0.0-0.2); ABSOLUTE LYMPHOCYTES 2.4 thou/uL (0.8-5.3); ABSOLUTE MONOCYTES 1.1 thou/uL (0.0-1.2); ABSOLUTE NEUTROPHILS 7.5 thou/uL (1.6-8.1); BASOPHILS 0.5 %; EOSINOPHILS 0.3 %; HEMATOCRIT 42.3 % (42.0-52.0); HEMOGLOBIN 13.9 gm/dL (14.0-18.0); LYMPHOCYTES 21.3 %; MCH 29.3 pg (26.0-34.0); MCV 88.7 fL (80.0-100.0); MONOCYTES 10.3 %; NUCLEATED RBCS 0 /100WBC; PLATELET COUNT* 276 thou/uL (150-400); POLYS 67.6 %; RBC 4.76 mil/uL (4.50-6.00); RDW-CV 13.3 % (10.5-14.5); WBC 11.1 thou/uL (4.0-11.0)
[2020-10-01 06:20] LABS: CALCIUM 8.3 mg/dL (8.5-10.1); CREATININE 1.1 mg/dL (0.6-1.3); POTASSIUM 3.9 mmol/L (3.5-5.1); TOTAL BILIRUBIN 0.6 mg/dL (<0.1-1.0); TOTAL PROTEIN 6.1 g/dL (6.4-8.2)
[2020-10-01 08:00] VITALS: BP 141/73
--- NOTE | 2020-10-01 15:55 | NUR ---
TEAM CONFRENCE MEETING HELD TODAY. CM SPOKE TO PT AND HIS SPOUSE ABOUT THE MEETING AND PLAN TO RE-TEAM AND HAVE THE PT REMAIN ON THE UNIT AND CONTINUE THERAPIES FOR ANOTHER WEEK. PT AND SPOUSE IN AGREEMENT. PT PROGRESSING TOWARDS GOALS, BUT BARRIERS ARE ATAXIA, BALANCE, AND SAFETY AWARENESS. CM WILL REMAIN AVAILABLE TO ASSIST AND FOLLOW NEEDED.
--- NOTE | 2020-10-01 18:29 | NUR ---
ASSESSMENT COMPLETED DOCUMENTED THIS MORNING. PATIENT UP AND PARTICIPATING WITH THERAPIES. NEEDS ASSISTANCE WITH ADL'S AND TO KEEP FOCUSED FOR SAFETY. XANAX 0.25MG GIVEN X1 THIS AFTERNOON WHEN PATIENT BECAME ANXIOUS AND CONFUSED. NOTED LESS ANXIETY AND CALMER BEHAVIORS. IN TO VISIT AND VOICED CONCERN ABOUT PATIENT'S XARELTO HE TAKES AT HOME NOT BEING GIVEN HERE. YOU CALL MD DR. BAILEY AND REC'D VERBAL ORDER TO START XARELTO 20MG PO QD. WAS INFORMED OF ORDER.
[2020-10-01 20:00] VITALS: BP 168/61
[2020-10-02 05:19] LABS: ABSOLUTE LYMPHOCYTES 2.2 thou/uL (0.8-5.3); ABSOLUTE MONOCYTES 0.8 thou/uL (0.0-1.2); ABSOLUTE NEUTROPHILS 6.6 thou/uL (1.6-8.1); BASOPHILS 0.2 %; EOSINOPHILS 0.5 %; HEMOGLOBIN 13.8 gm/dL (14.0-18.0); LYMPHOCYTES 22.6 %; MCH 29.8 pg (26.0-34.0); MCHC 33.6 g/dL (28.0-37.0); MCV 88.9 fL (80.0-100.0); MONOCYTES 8.6 %; MPV 8.1 fl. (7.2-11.1); NUCLEATED RBCS 0 /100WBC; PLATELET COUNT* 251 thou/uL (150-400); POLYS 68.1 %; RBC 4.62 mil/uL (4.50-6.00); RDW-CV 13.5 % (10.5-14.5); WBC 9.7 thou/uL (4.0-11.0)
[2020-10-02 08:00] VITALS: BP 182/74
--- NOTE | 2020-10-02 17:22 | NUR ---
AM ASSESSMENT AND VITAL SIGNS COMPLETED DOCUMENTED. PT HAD BETTER CONTROL OF MUSCLE MOVEMENT TODAY BUT STILL REQUIRES ASSISTANCE WITH ADL'S. DRESSING TO LEFT FOOT IS C/D/I, NON WT BEARING MAINTAINED MUCH POSSIBLE. FALL PRECAUTIONS AND HOURLY ROUNDING CONTINUE.
[2020-10-02 19:45] VITALS: BP 167/52
--- NOTE | 2020-10-02 22:46 | NUR ---
ASSUMED CARE AT 1930. PATIENT RESTING IN BED. AWAKENED FOR HS ASSESSMENT AND MEDS. TAKES PILLS WHOLE ONE AT A TIME WITH WATER. PICC LINE TO RUE INTACT, FLUSES WELL AND DRESSING C/D/I. TURNS SELF IN BED. LESS RESTLESS THAN THE LAST TIME THIS NURSE CARED FOR HIM. STILL HAS ATAXIA, BUT MUCH LESS INTENSE. VOIDS PER URINAL WITH HELP. SCABS AND BRUISING ON BILAT LE/SHINS IMPROVED. DRESSING TO LT FOOT C/D/I. DENIES PAIN. HOURLY ROUNDS CONTINUE. BED ALARM ON. CALL LITE IN REACH.
--- NOTE | 2020-10-03 05:02 | NUR ---
TURNS SELF, MOVES WELL IN BED. AROUND 0245 PATIENT WAS FOUND TO HAVE LEGS OVER THE SIDE OF THE BED. BED ALARM ON, BUT NOT SOUNDING PATIENT'S TRUNK WAS STILL IN BED. AT FIRST WAS ABLE TO REORIENT PATIENT, ABOUT AROUND 0305 PATIENT BECAME MORE ANXIOUS AND UNABLE TO REDIRECT. C/O WANTING TO GET OOB TO GET CLOTHES ON. GIVEN XANAX AND APAP, SEE MAR. RETURNED TO SLEEP ABOUT 40 MINUTES LATER. UNTIL RETURNED TO SLEEP, THIS NURSE HAD VERY CLOSE OBSERVATION. SLEEPING AT THIS WRITING. HOURLY ROUNDS CONTINUE. BED ALARM ON. CALL LITE IN REACH.
[2020-10-03 08:22] VITALS: BP 171/72
--- NOTE | 2020-10-03 18:20 | NUR ---
assessment completed as documented this morning. patient demonstrates much improvement overall in tremors and spastic movements of extremities. was able to feed himself with a spoon today, drink with his lidded cup, fluids encouraged. tolerating therapy well and continues to progress. sister at bedside this afternoon through supper. dressing changed on left foot as ordered, sutures are intact and no s/s of infection are noted. RUE PICC flushes well with zyvox infused this morning.
[2020-10-03 19:55] VITALS: BP 167/61
[2020-10-04 07:16] LABS: CREATININE 0.9 mg/dL (0.6-1.3); HEMATOCRIT 42.8 % (42.0-52.0); HEMOGLOBIN 14.1 gm/dL (14.0-18.0); MCH 29.4 pg (26.0-34.0); MCV 89.1 fL (80.0-100.0); MPV 8.3 fl. (7.2-11.1); RBC 4.8 mil/uL (4.50-6.00); RDW-CV 13.2 % (10.5-14.5); WBC 11.8 thou/uL (4.0-11.0)
[2020-10-04 08:05] VITALS: BP 204/88
[2020-10-04 09:30] VITALS: BP 170/60
--- NOTE | 2020-10-04 17:28 | NUR ---
PT WITH CONTINUED ATAXIA. UP TO CHAIR AND BSC WITH ASSIST X2, GAIT BELT AND WALKER. DRESSING TO L FOOT C/D/I. SURGICAL SHOE PLACED WHEN PT GETS UP.
--- NOTE | 2020-10-04 18:43 | NUR ---
DR BAILEY NOTIFIED OF AM VITAL SIGNS.
[2020-10-04 20:00] VITALS: BP 162/67
[2020-10-05 07:38] VITALS: BP 184/77
--- NOTE | 2020-10-05 16:13 | NUR ---
PT UP TO CHAIR WITH ASSIT X2, GAIT BELT, AND WALKER. ASSISTED PT WITH SHAVING. REQUIRES ASSISTANCE USING THE URINAL. SURGICAL SHOE IN PLACE WITH TRANFERS.
[2020-10-05 20:00] VITALS: BP 147/64
--- NOTE | 2020-10-06 07:00 | NUR ---
ASSUMED PT CARE AT 1930. ASSESSMENT COMPLETED CHARTED. ABLE TO MAKE NEEDS KNOWN. [id number] COMPLETED CHARTED. NO C/O PAIN OR DISCOMFORT. SLEPT IN BED MOST OF THE NIGHT. CALLED OUT APPROPRATELY TO USE URINAL. WILL CONTINUE TO MONITOR.
[2020-10-06 08:00] VITALS: BP 171/70
--- NOTE | 2020-10-06 15:44 | NUR ---
ASSUMMED CARE OF PT AT 0730, PT ALERT AND ORIENTED, PT TRANSFERS WITH ASSIST OF 1-2, TREMERS AND WEAKNESS, DENIES PAIN, VOIDS PER URINAL, BM X 1, RIGHT UPPER ARM PICC LINE PATENT, TOE DRESSING INTACT, HEEL BOOT ON WHEN UP, PT TAKING FOOD AND FLUIDS WELL WITH SET UP, TAKES PILLS WITHOUT DIFFICULTY, PT HAS APHASIA AND NEEDS TO BE INSTRUCTED TO SLOW SPEECH DOWN AT TIMES SO CAN BE UNDERSTOOD BETTER, PARTICIPATED IN ALL THERAPIES, HOURLY ROUNDING COMPLETED , ASSESSMENT COMPLETE, WILL CONTINUE TO MONITOR.
[2020-10-06 19:00] VITALS: BP 126/56
--- NOTE | 2020-10-07 00:25 | NUR ---
ASSUMED CARE AT 1930. PATIENT RESTING IN BED. TURNS SELF. TAKES PILLS WHOLE WITH WATER. PICC LINE FLUSHES WELL, GOOD BLOOD RETURN, DRESSING C/D/I. IVABX GIVEN. DRESSING TO LT FOOT C/D/I. MUCH BETTER MENTATION THAN WHEN THIS NURSE LAST CARED FOR HIM. SOMETIMES NEEDS TO SLOW DOWN WITH SPEECH TO BETTER UNDERSTAND HIM, BUT HE MAKES HIS NEEDS KNOWN. NO C/O PAIN. VOIDS PER URINAL.HOURLY ROUNDS CONTINUE. BED ALARM ON. CALL LITE IN REACH.
--- NOTE | 2020-10-07 05:24 | NUR ---
SLEPT MOST OF THE NIGHT. USED CALL LITE APPROPRIATELY TO ASK FOR HELP WITH URINAL. VOIDS PER URINAL. NO C/O PAIN. SPEECH GETTING CLEARER. USES OWN SIPPY CUP FOR DRINKING IN LIGHT OF HIS TREMORS. PICC LINE DRESSING C/D/I. HOURLY ROUNDS CONTINUE. BED ALARM ON. CALL LITE IN REACH.
[2020-10-07 08:00] VITALS: BP 161/74
--- NOTE | 2020-10-07 15:22 | NUR ---
ASSUMMED CARE OF PT AT 0730, PT ALERT AND ORIENTED, PT TRANSFERS WITH ASSIST OF 1-2, NEEDS CUEING TO MAINTAIN STEADINESS, TREMORS, FEEDS SELF WITH SET UP, APETITE GD, DENIES PAIN, DRESSING INTACT TO LEFT FOOT, REPOSTIONED EVERY 2 HOURS, UP IN CHAIR FOR INTERVALS, VOIDS PER URINAL, PARTICIPATED IN ALL THERAPIES, HOURLY ROUNDING COMPLETED, ASSESSMENT COMPLETE, WILL CONTINUE TO MONITOR.
--- NOTE | 2020-10-07 15:43 | NUR ---
PT DENIES HAVING ANY QUESTIONS FOR TEAM MEETING TOMORROW. CM LFT VM W/PT'S SPOUSE, CONRAD RANKIN, TO SEE SHE HAD ANY QUESTIONS/CONCERNS FOR TEAM.
[2020-10-07 19:00] VITALS: BP 144/49
--- NOTE | 2020-10-07 20:40 | NUR ---
RESTING IN BED AND WATCHING TV. GAVE TYLENOL FOR COMPLAINT OF LEFT FOOT PAIN RATED "3". CHERYL WRAP AROUND LEFT FOOT DRY/INTACT. LEFT FOOT ELEVATED ON A PILLOW. GOOD BLOOD RETURN FROM RIGHT UPPER ARM PICC LINE. CALL LIGHT WITHIN REACH.
--- NOTE | 2020-10-08 05:21 | NUR ---
RESTED QUIETLY. CALLS FOR ASSIST WITH URINAL. NO FURTHER COMPLANT OF PAIN. HOURLY ROUNDING IN PROGRESS.
[2020-10-08 08:00] VITALS: BP 184/76
[2020-10-08 11:52] VITALS: BP 127/58
--- NOTE | 2020-10-08 15:30 | NUR ---
ASSUMMED CARE OF PT AT 0730, PT ALERT AND ORIENTED, TRANSFERS WITH ASSIST OF 1, GB WALKER, DENIED PAIN THIS SHIFT, DR ABRAMS CHANGED DRESSING TO LEFT FOOT, TAKING FOOD AND FLUIDS WITH SET UP, USES SIPPY CUP, BM X 2 THIS SHIFT, RECTAL/BUTTOCK AREA REDDENED, BARRIER OINTMENT APPLIED, PICC LINE TO RIGHT UPPER ARM INTACT WITH GD BLOOD RETURN, BP ELEVATED THIS AM, 184/76, MEDS GIVEN BP RECHECKED AND 127/58. PARTICIPATED IN ALL THERAPIES, HOURLY ROUNDING COMPLETED, ASSESSMENT COMPLETE, WILL CONTINUE TO MONITOR.
--- NOTE | 2020-10-08 17:29 | NUR ---
TEAM CONFRENCE MEETING HELD TODAY. PT AND SPOUSE INFORMED OF MEETING AND PLAN TO RE-TEAM AND HAVE PT REMAIN IN THE UNIT FOR ANOTHER WEEK AND CONTINUE THERAPIES. CM SPOKE TO PT'S SPOUSE TO DISCUSS PT'S W/C AND USE OF W/C AT HOME. PT'S SPOUSE INFORMS THAT THE PT'S W/C IS ABLE TO FIT THROUGH ALL DOORS EXCEPT THE BATHROOM. CM MAY BE ABLE TO ASSIST WITH OBTAINING A BSC FOR HOME USE. PT'S SPOUSE ALSO INFORMS THAT THEY ARE ABLE TO WIDEN THE BATHROOM DOOR IF NEEDED AT D/C. CM WILL REMAIN AVAILABLE TO ASSIST AND FOLLOW NEEDED.
[2020-10-08 19:00] VITALS: BP 148/58
--- NOTE | 2020-10-08 21:10 | NUR ---
RESTING QUIETLY IN BED AND WATCHING TV. TYLENOL GIVEN FOR COMPLAINT OF LEFT FOOT PAIN RATED "3". CHERYL WRAP AROUND LEFT FOOT DRY/INTACT. GOOD BLOOD RETURN FROM RIGHT UPPER ARM PICC LINE. CALL LIGHT WITHIN REACH.
--- NOTE | 2020-10-09 05:25 | NUR ---
ASSISTED WITH THE URINAL MULTIPLE TIMES. REMAINS ON IV ABT. NO FURTHER COMPLAINT OF PAIN. HOURLY ROUNDING IN PROGRESS.
[2020-10-09 10:01] VITALS: BP 165/65
[2020-10-09 20:10] VITALS: BP 155/56
--- NOTE | 2020-10-09 20:50 | NUR ---
RESTING QUIETLY IN BED AND WATCHING TV. TYLENOL GIVEN FOR COMPLAINT OF LEFT FOOT PAIN RATED "3". TOOK MEDICATIONS WHOLE ALL AT ONCE FOLLOWED WITH WATER. USES SIPPY CUP TO DRINK WATER. GOOD BLOOD RETURN FROM RIGHT UPPER SINGLE LUMEN PICC LINE. IV ABT INFUSING WITHOUT DIFFICULTY. CALL LIGHT WITHIN REACH.
--- NOTE | 2020-10-10 05:00 | NUR ---
RESTED QUIETLY. CALLS FOR ASSISTANCE WITH URINAL. NO FURTHER COMPLAINT OF PAIN. HOURLY ROUNDING IN PROGRESS.
[2020-10-10 07:52] VITALS: BP 175/72
[2020-10-10 12:26] LABS: HEMATOCRIT 46.7 % (42.0-52.0); HEMOGLOBIN 15.2 gm/dL (14.0-18.0); MCH 29.2 pg (26.0-34.0); MCHC 32.5 g/dL (28.0-37.0); MCV 89.7 fL (80.0-100.0); MPV 8.5 fl. (7.2-11.1); RBC 5.21 mil/uL (4.50-6.00); RDW-CV 13.3 % (10.5-14.5); WBC 20.5 thou/uL (4.0-11.0)
[2020-10-10 12:34] LABS: CALCIUM 9.2 mg/dL (8.5-10.1); CREATININE 1.2 mg/dL (0.6-1.3); POTASSIUM 4.9 mmol/L (3.5-5.1)
--- NOTE | 2020-10-10 19:02 | NUR ---
PT UP IM WC MOST OF SHIFT. CALLS APPROPRIATELY FOR ASSIST. PARTICIPATES IN THERAPIES. DENIES PAIN. GOOD APPETITE. TOLERATING PO WELL.
[2020-10-10 20:00] VITALS: BP 109/55
--- NOTE | 2020-10-11 06:42 | NUR ---
ASSUMED PT CARE AT 1930. ASSESSMENT COMPLETED CHARTED. PT LAYING IN BED MOST OF THE SHIFT, SLEEPING ON AND OFF. CALLING OUT TO USE URINAL APPROPRIATELY. [id number] COMPLETED CHARTED. ABLE TO MAKE NEEDS KNOWN. WILL CONTINUE TO MONITOR.
[2020-10-11 07:30] VITALS: BP 149/73
[2020-10-11 10:50] LABS: URINE BILIRUBIN NEGATIVE (Negative); URINE BLOOD NEGATIVE (Negative); URINE CLARITY CLEAR; URINE COLOR YELLOW; URINE GLUCOSE-RANDOM NEGATIVE (Negative); URINE KETONES NEGATIVE (Negative); URINE LEUKOCYTES-REFLEX NEGATIVE (Negative); URINE NITRITE-REFLEX NEGATIVE (Negative); URINE PROTEIN NEGATIVE (Negative); URINE UROBILINOGEN 0.2 E.U./dl (0.2-1.0)
--- NOTE | 2020-10-11 17:00 | NUR ---
ASSESSMENT COMPLETED DOCUMENTED THIS MORNING. PATIENT ASSISTED UP TO W/C, TO SINK FOR AM CARES. ABLE TO INDEP SHAVE, BRUSH TEETH AND WASH FACE. NURSING USED WARM SHOWER CAP AND WASHED HIS HAIR. STAYED UP TIL AFTER LUNCH, CAME IN FOR A VISIT. ASSISTED BACK TO BED AND HAS BEEN TURNED Q2H. PICC LINE FLUSHES WELL WITH A BRISK BLOOD RETURN, BARRIER OINTMENT APPLIED TO BUTTOCKS. GOOD APPETITE, AND HAS BEEN CONT OF B&B.
[2020-10-11 19:49] VITALS: BP 136/54
--- NOTE | 2020-10-11 20:25 | NUR ---
JUST WOKE UP FROM A NAP. CALLED FOR ASSIST WITH URINAL. GOOD BLOOD RETURN FORM RIGHT UPPER ARM SINGLE LUMEN PICC LINE. DENIES NEED FOR PAIN MEDICATION. CALL LIGHT WITHIN REACH. TOOK MEDICATIONS WHOLE ALL AT ONCE WITH WATER FROM SIPPLY CUP.
[2020-10-12 04:58] LABS: HEMATOCRIT 43.2 % (42.0-52.0); HEMOGLOBIN 14.5 gm/dL (14.0-18.0); MCH 29.5 pg (26.0-34.0); MCHC 33.4 g/dL (28.0-37.0); MCV 88.1 fL (80.0-100.0); MPV 8.3 fl. (7.2-11.1); RBC 4.9 mil/uL (4.50-6.00); RDW-CV 13.4 % (10.5-14.5); WBC 11.6 thou/uL (4.0-11.0)
[2020-10-12 05:15] LABS: CALCIUM 8.2 mg/dL (8.5-10.1); CREATININE 1.1 mg/dL (0.6-1.3); MAGNESIUM 2.3 mg/dL (1.8-2.4); POTASSIUM 4.6 mmol/L (3.5-5.1)
--- NOTE | 2020-10-12 05:23 | NUR ---
LEVON SUAREZ. ASSISTED WITH USING THE URINAL. HOURLY ROUNDING IN PROGRESS.
[2020-10-12 08:00] VITALS: BP 166/66
--- NOTE | 2020-10-12 17:07 | NUR ---
ASSESSMENT COMPLETED DOCUMENTED THIS MORNING. PATIENT UP IN W/C AT BEDSIDE AFTER LUNCH TODAY AND RETURNED TO BED AFTER SUPPER. NO ISSUES NOTED, ASSISTED TO BR X1 FOR BOWEL MOVEMENT. PICC LINE PATENT AND FLUSHES WELL WITH BRISK BLOOD RETURN.
[2020-10-12 20:13] VITALS: BP 129/50
--- NOTE | 2020-10-12 20:25 | NUR ---
RESTING QUIETLY IN BED AND WATCHING TV. DENIES NEED FOR PAIN MEDICATION. GOOD BLOOD RETURN FOR RIGHT UPPER ARM SINGLE LUMEN PICC. CALL LIGHT WITHIN REACH.
--- NOTE | 2020-10-13 05:34 | NUR ---
REMAINS ON IV ANTIBITOTIC. CALLS FOR ASSIST WITH URINAL. RESTED QUIETLY. HOURLY ROUNDING IN PROGRESS.
[2020-10-13 08:00] VITALS: BP 152/63
--- NOTE | 2020-10-13 16:05 | NUR ---
PT A&Ox4. VITALS STABLE. NO IV. WORKED WELL WITH THERAPY. UP TO CHAIR MAJORITY OF THE DAY. NO PAIN. ATE 90% OF MEALS. NEEDS HELP PLACING URINAL TO PEE. PICC IN R ARM IS PATENT, INFUSION GIVEN ORDERED. DRESSING IS C/D/I. FALL PRECAUTIONS IN PLACE. CALL LIGHT WITHIN REACH. WILL CONTINUE TO MONITOR.
[2020-10-13 19:00] VITALS: BP 142/56
--- NOTE | 2020-10-13 20:10 | NUR ---
RESTING QUIETLY IN BED AT WATCHING TV. DENIES DISCOMFORT. CALL LIGHT WITHIN REACH.
--- NOTE | 2020-10-14 05:00 | NUR ---
RESTED QUIETLY. CALLS FOR ASSIST WITH URINAL. ASSISTED WITH REPOSITIONING. HOURLY ROUNDING IN PROGRESS.
[2020-10-14 08:00] VITALS: BP 132/62
--- NOTE | 2020-10-14 15:31 | NUR ---
CM SPOKE TO THE PT AND HIS SPOUSE TO DISCUSS ANY QUESTIONS OR CONCERNS THAT THEY MAY HAVE FOR TOMORROW'S TEAM CONFRENCE MEETING. PT HAS NO CONCERNS. PT'S SPOUSE QUESTIONED WHAT WOULD BE NEEDED AT D/C ([facility] AND HH)? CM TO F/U WITH PT AND SPOUSE AFTER TOMORROW'S MEETING.
--- NOTE | 2020-10-14 17:17 | NUR ---
ASSUMED CARE OF PATIENT AT 0730. ALERT AND ORIENTED X 4. VITAL SIGNS STABLE ON ROOM AIR. PAIN BEING MANAGED BY PO MEDICATION. DENIES NAUSEA AT THIS TIME. VOIDING PER URINAL/BATHROOM. TOLERATED MORNING AND AFTERNOON THERAPIES. FALL PRECAUTIONS IN PLACE AND BED ALARM ON. HOURLY ROUNDS MAINTAINED THROUGHOUT THE SHIFT. CALL LIGHT WITHIN REACH. NURSING WILL CONTINUE TO MONITOR.
[2020-10-14 19:00] VITALS: BP 130/59
[2020-10-15 05:44] LABS: HEMATOCRIT 40.9 % (42.0-52.0); HEMOGLOBIN 13.8 gm/dL (14.0-18.0); MCH 29.6 pg (26.0-34.0); MCHC 33.8 g/dL (28.0-37.0); MCV 87.5 fL (80.0-100.0); MPV 8.9 fl. (7.2-11.1); RBC 4.67 mil/uL (4.50-6.00); RDW-CV 13.2 % (10.5-14.5); WBC 10.5 thou/uL (4.0-11.0)
[2020-10-15 06:03] LABS: CALCIUM 8.2 mg/dL (8.5-10.1); CREATININE 1.1 mg/dL (0.6-1.3)
--- NOTE | 2020-10-15 06:04 | NUR ---
ASSUMED PT CARE AT 1930. ASSESSMENT COMPLETED CHARTED. ABLE TO MAKE NEEDS KNOWN. RESTING IN BED ALL NIGHT AND CALLED OUT APPROPRIATELY FOR URINAL. C/O FOOT PAIN AND GAVE PRN MEDICATIONS PER EMAR. NO PAIN SINCE. WILL CONTINUE TO MONITOR.
[2020-10-15 08:00] VITALS: BP 159/55
--- NOTE | 2020-10-15 16:21 | NUR ---
AM ASSESSMENT AND VITAL SIGNS COMPLETED DOCUMENTED. PT HAS MADE GOOD PROGRESS AND DISCHARGE IS BEING PLANNED FOR TUESDAY. PT STILL REQUIRES SUPERVISION/ ASSISTANCE WITH TRANSFERS AND TOILETING. DR ABRAMS CHANGED THE DRESSING TO HIS LEFT FOOT AND A CULTURE HAS BEEN SENT TO THE LAB. FALL PRECAUTIONS AND HOURLY ROUNDING CONTINUE.
--- NOTE | 2020-10-15 17:20 | NUR ---
TEAM CONFRENCE MEETING HELD TODAY. CM AND PHYSICIAN SPOKE TO S PT AND HIS SPOUSE TO DISCUSS MEETING AND PLAN TO ARRANGE FAMILY TRAINING AND D/C PT HOME WITH SPOUSE AND HH. PT PROGRESSING TOWARDS GOALS, BUT BARRIERS ARE SPONTANEOUS ATAXIA, TREMORS, AND NEED FOR 24/7 SPERVISION AT D/C. CM WILL REMAIN AVAILABLE TO ASSIST AND FOLLOW NEEDED.
[2020-10-15 19:30] VITALS: BP 138/54
--- NOTE | 2020-10-16 06:00 | NUR ---
PATIENT SLEPT MOST OF THE NIGHT. PICC LINE REMAINS IN PLACE. IV ANTIBIOTICS WERE GIVEN ORDERED. ASSISTED PATIENT WITH THE URINAL NEEDED. PATIENT WAS GIVEN TYLENOL ONCE FOR PAIN. WILL CONTINUE TO MONITOR.
[2020-10-16 07:30] VITALS: BP 145/59
[2020-10-16 19:30] VITALS: BP 91/55
--- NOTE | 2020-10-16 20:55 | NUR ---
RESTING QUIETLY IN BED AND WATCHING TV. GAVE TYLENOL FOR COMPLAINT OF CRAMPING IN RIGHT LEG. GOOD BLOOD RETURN FROM RIGHT UPPER ARM SINGLE LUMEN PICC. CALL LIGHT WITHIN REACH.
--- NOTE | 2020-10-17 05:59 | NUR ---
RESTED QUIETLY. ASSISTED WITH THE URINAL. INCONTINENT OF BOWEL X ONE. [facility] CARE GIVEN. PATIENT TO BE DISCHARGED TO HOME TODAY. HOURLY ROUNDING IN PROGRESS.
[2020-10-17 08:30] VITALS: BP 147/65
[2020-10-17 08:55] VITALS: BP 127/65
[2020-10-17] MEDS ORDERED: LINEZOLID600 MG PO ×2 (10:24→12:39)
[2020-10-17 12:54] VITALS: BP 147/65
--- NOTE | 2020-10-17 13:47 | NUR ---
WOUND NURSE: PATIENT SCHEDULED TO SEE DR. ABRAMS NEXT 10/[address] ABRAMS, PT 100% WT BEARING TO HEEL IN SX SHOE.
[2020-10-17 14:30] VITALS: BP 147/65
--- NOTE | 2020-10-17 14:31 | NUR ---
CM SPK W/ CONRAD SERRANO, PT'S SPOUSE TO EXPLAIN THAT [facility] WILL CONTACT HER TO ARRANGE VISIT. CONRAD SERRANO REQUESTED [facility]. CONRAD EXPLAINED TO CM SHE BORROWED A W/C AND HAS A TRANSFER W/C AT HOME TO USE UNTIL PROVIDER PLUS DELIVERS W/C ON TUESDAY. DR. NAYAK NOTIFIED OF THIS PLAN.
--- NOTE | 2020-10-17 15:53 | NUR ---
PATIENT DISCHARGED HOME. PATIENT AND VERBALIZED UNDERSTANDING OF DISCHARGE INSTRUCTIONS. PICC LINE D/C WITHOUT DIFFICULTY AND DRESSING REMAINS DRY AND INTACT AT DISCHARGE. DRESSING CHANGED TODAY TO LEFT FOOT. DENIES NEED FOR PAIN MEDICATION. BARRIER CREAM APPLIED TO SLIGHTLY PINK AREA BETWEEN BUTTOCKS. LEFT TOES WARM AND PINK AT DISCHARGE. PATIENT LEFT VIA W/C TO [facility].
--- NOTE | 2020-10-17 16:56 | NUR ---
PATIENT WAS LEFT A MESSAGE ON HOME PHONE FOR HIM TO FOLLOW UP WITH AN INFECTIOUS DIS. OF HIS PRIMARY DR CHOICE. MESSAGE ALSO LEFT WITH [facility] WHERE PATIENT HAS APPT ON 10/22.
--- NOTE | 2020-10-21 17:14 | CON ---
[address] [address] CONSULTATION Name: ADRIANNA ARRIOLA Room: [facility] M.R.#: [id number] Admission: 09/26/20 Attend Phys: Jose Alejandro Cao MD Discharge: 10/17/20 Date of : 41 Report #: [id number] THIS REPORT FOR: cc: Manny Ballard MD, John MD ~ Daneil Hobson DPM DATE OF SERVICE: 10/08/2020 CHIEF COMPLAINT: Follow up for resection, left distal first metatarsal, hallux and sesamoids for osteomyelitis with tophaceous gout. He is on parenteral linezolid with good tolerance. He relates improved appetite and overall body strength. He is partial weightbearing to the left foot in a surgical shoe for physical therapy as well as for transfers and short distances in his room. He denies fevers, chills, nausea, malaise, or foot pain. PHYSICAL EXAMINATION: Temperature 97.6, pulse 61, respirations 18, blood pressure 127/58. The incision is well coapted with no erythema or cardinal signs of infection. Scant sanguinous drainage on his bandage. The foot is warm with immediate elayne-incisional capillary refill and no signs of acute vascular embarrassment or residual infection. IMPRESSION: Status post left partial first ray resection for osteomyelitis, septicemia, and gouty arthritis. PLAN: The incision was cleansed, dried and redressed with Aquacel Ag, ABDs, Kerlix and Vadim bandage. The patient encouraged to elevate foot and minimize ambulation. I will follow up with the patient weekly and come and plan to see him next Tuesday whether it is on the inpatient rehabilitation floor or at [facility]. <ELECTRONICALLY SIGNED> By: Daniel Hobson DPM 10/21/20 1714 1321 1411Dhumberto Hobson DPM /nt
--- NOTE | 2020-10-21 17:15 | CON ---
[address] [address] CONSULTATION Name: ADRIANNA ARRIOLA Room: [facility] IN M.R.#: [id number] Admission: 09/26/20 Attend Phys: Jose Alejandro Cao MD Discharge: 10/17/20 Date of : 41 Report #: [id number] THIS REPORT FOR: cc: Manny Ballard MD, John MD ~ Daniel Hobson DPM DATE OF SERVICE: 10/15/2020 CHIEF COMPLAINT: Status post resection left distal first metatarsal and great toe for osteomyelitis and chronic gouty arthritis. The patient is currently on oral Zyvox 600 mg b.i.d. with good tolerance. He relates low-grade pain to the area, he denies fevers, chills, nausea or malaise. He has good appetite, remains nonambulatory with physical therapy. He states possible home discharge in 2 days. LABORATORY AND DIAGNOSTIC DATA: WBC 10.5, RBC 4.67, hemoglobin 13.8, hematocrit 40.9, platelets 128. BUN 42, creatinine 1.1, glucose 97. PHYSICAL EXAMINATION: The proximal incision is well coapted with some gapping along the central aspect with underlying boggy tissue. Capillary refill roughly 0.5 seconds to the elayne-incision along its length. No expressible drainage noted. The medial skin flap is intact with no communication with the underlying surgical wound. The foot is warm with no pallor/cyanosis or signs of acute vascular embarrassment. I can palpate his left dorsalis pedis and posterior tibial pulses. Upon suture removal, the central area of the wound did display some yellowish fibronecrotic tissue with some tophaceous deposits. I curettaged these from the wound bed with a sterile curette and combination of a sterile scalpel. Scant bleeding was achieved and stopped with pressure. There is no palpable or visible bone. The wound was cleansed with wound cleanser, dried and packed with Aquacel Ag and covered with ABD, Kerlix and Vadim. He will have the dressing changes 3 times a week as above and offloading to consist of nonweightbearing. I performed an aerobic wound culture for surveillance. The patient to remain on Zyvox per Medicine. <ELECTRONICALLY SIGNED> By: Daniel Hobson DPM 10/21/20 1715 1809 [id number] Hobson DPM /nt
== END 2020-10-17 15:45 | disposition home health service (06) | DRG 463 ==
LOC: M.REH 14:48
PROVIDERS: Internal Medicine; ADMIT Physical Medicine & Rehabilitation; ATTEND Physical Medicine & Rehabilitation
PROC: 0JBR0ZZ Excision of Left Foot Subcutaneous Tissue and Fascia, Open Approach (ICD-10-PCS; principal; 2020-10-15)
DX: M86.8X7 Other osteomyelitis, ankle and foot (principal); N17.0 Acute kidney failure with tubular necrosis; E43 Unspecified severe protein-calorie malnutrition; L03.116 Cellulitis of left lower limb; M00.9 Pyogenic arthritis, unspecified; A52.1 Symptomatic neurosyphilis; M1A.0721 Idiopathic chronic gout, left ankle and foot, with tophus (tophi); G62.9 Polyneuropathy, unspecified; E87.6 Hypokalemia; I10 Essential (primary) hypertension; I73.9 Peripheral vascular disease, unspecified; R29.6 Repeated falls; E53.8 Deficiency of other specified B group vitamins; R73.9 Hyperglycemia, unspecified; E80.6 Other disorders of bilirubin metabolism; Z87.891 Personal history of nicotine dependence; Z86.718 Personal history of other venous thrombosis and embolism; Z68.20 Body mass index [BMI] 20.0-20.9, adult

== ENCOUNTER 2020-10-19 20:27 | Inpatient (IN) | payer MEDICARE, OTHER ==
[~2020-10-19] VITALS: Ht 177.8 cm; Wt 68.0 kg
--- NOTE | ~2020-10-19 | EMS ---
[address] [address] EMS Patient Care Report Name: ADRIANNA ARRIOLA Room: [address] IN [facility].#: [id number] Admission: 10/19/20 Attend Phys: Abdulaziz Whyte MD Discharge: Date of : 41 Report #: [id number] THIS REPORT FOR: //name// Report Transmitted: 10/20/2020 04:[address] [facility] Incident [id number] @ 10/19/2020 19:33 Incident Location [address] [place] [address] Patient Adrianna Arriola Male, 75 Years 1945 Patient Address [address] [place] [address] Patient History Hypertension (HTN),Anxiety disorder, unspecified,Dysthymic disorder, Patient Allergies No known allergies, Patient Medications Xarelto, Clonazepam, Lisinopril, linezolid, Chief Complaint Diarrhea Disposition Transported No Lights/[place] Dispatch Reason Falls Transported To [facility] Narrative Medic 322 was dispatched for a 911 call for an unkown problem. Medic 322 arrived on scene to find a male subject sitting in a wheelchair talking with IFD. The patient stated he had diarreha and tremors for a couple of days. He also had the big toe amputated last week from his left foot. He can not bear [address] [address] EMS Patient Care Report Name: ADRIANNA ARRIOLA Room: [address] IN [facility].#: [id number] Admission: 10/19/20 Attend Phys: Abdulaziz Whyte MD Discharge: Date of : 41 Report #: [id number] weight on his felt foot per doctor's orders. The patinet also fell but was not injured from the fall. Jacque Whiting started an assessment on the patient. Medic Johanne transferred the patient to the [facility] using the stand and pivot maneuver, and secured him using all the straps provided. The patient was transferred to the [facility] without difficulty. Medic Johanne transported the patient to the ambulance using the litter. Once in the back of the ambulance medic Johanne continued her assessment on the patient. the patient rested comfortably on the litter during the transport. He wanted to be transported to [place]. medic Johanne arrived at [facility] and transported the patient to his room using the litter. The patient was transferred to the hospital bed using the sheet slide maneuver. Medic Johanne gave a verbal report to the nurse, and transferred patient care to the nurse. HIPPA was signed by the nurse. Marco ge EMT- P#[id number] Initial Vitals @20:09Pain: 0/10, @19:59Pain: 0/10, @20:09P: 76,R: 18,BP: 125/59, @19:59P: 76,R: 18,BP: 125/62, @20:09GCS: 15, @19:59GCS: 15, Assessments @19:46MENTAL:SKIN:HEENT:LUNG SOUNDS:ABDOMEN:PELVIS//GI:EXTREMITIES:PULSE:NEURO: Impression Functional diarrhea Timeline 19:33,Call Received 19:33,Dispatch Notified 19:33,Psap Call 19:33,Dispatched 19:34,En Route 19:45,On Scene 19:46,At Patient 19:57,Depart Scene 19:59,BP: 125/62 M,PULSE: 76,RR: 18 R,SPO2: Ox,ETCO2: ,BG: ,PAIN: ,GCS: , 19:59,BP: / M,PULSE: ,RR: R,SPO2: Ox,ETCO2: ,BG: ,PAIN: ,GCS: 15, 19:59,BP: / M,PULSE: ,RR: R,SPO2: Ox,ETCO2: ,BG: ,PAIN: 0,GCS: , 20:09,BP: / M,PULSE: ,RR: R,SPO2: Ox,ETCO2: ,BG: ,PAIN: 0,GCS: , 20:09,BP: 125/59 M,PULSE: 76,RR: 18 R,SPO2: Ox,ETCO2: ,BG: ,PAIN: ,GCS: , 20:09,BP: / M,PULSE: ,RR: R,SPO2: Ox,ETCO2: ,BG: ,PAIN: ,GCS: 15, 20:21,[place] [address] EMS Patient Care Report Name: ADRIANNA ARRIOLA Room: [address] IN [facility]#: [id number] Admission: 10/19/20 Attend Phys: Abdulaziz Whyte MD Discharge: Date of : 41 Report #: [id number] 20:36,Call Closed Disclaimer v1.1 Copyright 2020 [employer] This EMS Care Summary contains data elements from the applicable legal record (which may be displayed differently). It is designed to provide pertinent information for the following purposes: continuity of care, clinical quality, and state data reporting. The complete legal record is available to ED staff and administrators of the receiving hospital in [employer]'s Patient Tracker. All data is provided "as is."
--- NOTE | ~2020-10-19 | CON ---
[address] [address] CONSULTATION Name: ADRIANNA ARRIOLA Room: [address] IN [facility].#: [id number] Admission: 10/19/20 Attend Phys: Abdulaziz Whyte MD Discharge: Date of : 41 Report #: [id number] THIS REPORT FOR: cc: Manny Ballard MD, John MD ~ Daniel Hobson DPM DATE OF SERVICE: 10/22/2020 CHIEF COMPLAINT: Status post amputation, left great toe at first MTP and distal first metatarsal head resection for osteomyelitis. He had a recent fall and was admitted for workup. He is scheduled to be discharged today or tomorrow. His linezolid was discontinued, he is currently off antibiotics. He feels well. He denies fevers, chills, nausea, or malaise. LABORATORY DATA: WBC 5.4, RBC 3.78, hemoglobin 11.2, hematocrit 33.4, platelets 43. BUN 13, creatinine 0.8, glucose 103. PHYSICAL EXAMINATION: The wound bed has a pale granulation with some pale fibrous slough. No visible or palpable bone. No erythema or cardinal signs of infection. The foot is warm with no acute vascular embarrassment. IMPRESSION: Status post left partial first ray resection for osteomyelitis and acute and chronic gouty arthritis. PLAN: The wound was debrided with scissors and forceps to remove subcutaneous tissue and slough from the wound bed. This was an excisional wound debridement. Wound was cleansed and dressed with Aquacel Ag, ABD, Kerlix, and Vadim bandage. The patient may ambulate on the heel with a walker and assistance as previously instructed. I will follow up with him next week at [facility]. By: 1605 1619Daniel Hobson DPM /najma
[~2020-10-19 20:27] MED LIST changes: +LINEZOLID600 MG PO
[2020-10-19 20:30] VITALS: BP 124/80
[2020-10-19 21:08] LABS: ABSOLUTE LYMPHOCYTES 1.4 thou/uL (0.8-5.3); ABSOLUTE MONOCYTES 0.9 thou/uL (0.0-1.2); ABSOLUTE NEUTROPHILS 10.4 thou/uL (1.6-8.1); EOSINOPHILS 0.2 %; HEMATOCRIT 44.4 % (42.0-52.0); HEMOGLOBIN 14.7 gm/dL (14.0-18.0); LYMPHOCYTES 11.3 %; MCH 29.4 pg (26.0-34.0); MCV 88.8 fL (80.0-100.0); MONOCYTES 6.9 %; MPV 9.4 fl. (7.2-11.1); NUCLEATED RBCS 0 /100WBC; PLATELET COUNT* 101 thou/uL (150-400); POLYS 81.6 %; RBC 4.99 mil/uL (4.50-6.00); RDW-CV 13.1 % (10.5-14.5); WBC 12.8 thou/uL (4.0-11.0)
[2020-10-19 21:12] LABS: CALCIUM 8.6 mg/dL (8.5-10.1); CREATININE 1.7 mg/dL (0.6-1.3); POTASSIUM 4.9 mmol/L (3.5-5.1)
[2020-10-19 21:16] LABS: URINE BILIRUBIN NEGATIVE (Negative); URINE BLOOD TRACE (Negative); URINE CLARITY CLEAR; URINE COLOR YELLOW; URINE GLUCOSE-RANDOM NEGATIVE (Negative); URINE KETONES NEGATIVE (Negative); URINE LEUKOCYTES-REFLEX NEGATIVE (Negative); URINE NITRITE-REFLEX NEGATIVE (Negative); URINE PROTEIN NEGATIVE (Negative); URINE UROBILINOGEN 0.2 E.U./dl (0.2-1.0)
[2020-10-19 21:17] LABS: ALBUMIN 3.4 g/dL (3.4-5.0); MAGNESIUM 2.1 mg/dL (1.8-2.4); TOTAL BILIRUBIN 0.5 mg/dL (<0.1-1.0); TOTAL PROTEIN 6.9 g/dL (6.4-8.2)
[2020-10-20 00:17] VITALS: BP 120/50
[2020-10-20 01:00] VITALS: BP 141/55
[2020-10-20] MEDS ORDERED: KLONOPIN1 MG PO (03:20)
[2020-10-20 07:45] VITALS: BP 138/67
[2020-10-20 09:28] LABS: CALCIUM 7.8 mg/dL (8.5-10.1); CREATININE 1.2 mg/dL (0.6-1.3); POTASSIUM 4.5 mmol/L (3.5-5.1)
[2020-10-20 09:31] LABS: MAGNESIUM 1.9 mg/dL (1.8-2.4); PHOSPHORUS* 2.5 mg/dL (2.5-4.9)
[2020-10-20 16:10] VITALS: BP 141/68
[2020-10-20 20:00] VITALS: BP 134/60
[2020-10-21 07:30] VITALS: BP 133/65
[2020-10-21 15:39] VITALS: BP 123/52
[2020-10-21 20:00] VITALS: BP 132/62
[2020-10-22 00:40] VITALS: BP 130/50
[2020-10-22 05:29] LABS: HEMATOCRIT 33.4 % (42.0-52.0); MCH 29.6 pg (26.0-34.0); MCHC 33.5 g/dL (28.0-37.0); MCV 88.2 fL (80.0-100.0); MPV 9.1 fl. (7.2-11.1); RBC 3.78 mil/uL (4.50-6.00); RDW-CV 13.2 % (10.5-14.5); WBC 5.4 thou/uL (4.0-11.0)
[2020-10-22 05:36] LABS: CALCIUM 8.1 mg/dL (8.5-10.1); CREATININE 0.8 mg/dL (0.6-1.3); MAGNESIUM 1.8 mg/dL (1.8-2.4); POTASSIUM 3.8 mmol/L (3.5-5.1)
[2020-10-22 06:25] LABS: HEMOGLOBIN 11.2 gm/dL (14.0-18.0)
[2020-10-22 07:25] VITALS: BP 159/66
[2020-10-22] MEDS ORDERED: XARELTO20 MG PO (08:06)
[2020-10-22] MEDS ORDERED: ACIDOPHILUS1 EAC4 PO (08:06)
[2020-10-22 14:16] VITALS: BP 159/66
[2020-10-22 16:00] VITALS: BP 125/56
[2020-10-22 19:54] VITALS: BP 121/50
[2020-10-23 07:30] VITALS: BP 139/73
[2020-10-23 09:24] VITALS: BP 139/73
== END 2020-10-23 17:30 | DRG 356 ==
LOC: M.ERS 20:27 → M.3W 23:01 → M.TBA-ER 23:01 → M.3W 10-20 00:25
PROVIDERS: Emergency Medicine; ADMIT Internal Medicine; ATTEND Internal Medicine
PROC: 0JBR0ZZ Excision of Left Foot Subcutaneous Tissue and Fascia, Open Approach (ICD-10-PCS; principal; 2020-10-22)
DX: A08.4 Viral intestinal infection, unspecified (principal); N17.0 Acute kidney failure with tubular necrosis; R65.11 Systemic inflammatory response syndrome (SIRS) of non-infectious origin with acute organ dysfunction; M00.9 Pyogenic arthritis, unspecified; M86.8X7 Other osteomyelitis, ankle and foot; E86.9 Volume depletion, unspecified; F41.1 Generalized anxiety disorder; I10 Essential (primary) hypertension; F44.4 Conversion disorder with motor symptom or deficit; G62.9 Polyneuropathy, unspecified; M10.072 Idiopathic gout, left ankle and foot; Z20.828 Contact with and (suspected) exposure to other viral communicable diseases; Z87.891 Personal history of nicotine dependence; Z79.899 Other long term (current) drug therapy; Z89.422 Acquired absence of other left toe(s)

== ENCOUNTER → 2020-12-03 | Outpatient (CLI) | payer MEDICARE ==
[~2020-12-03] MED LIST changes: +ACIDOPHILUS1 EAC4 PO; +KLONOPIN1 MG PO
== END ==
LOC: M.WC 13:00
PROVIDERS: ATTEND Podiatrist Foot & Ankle Surgery
DX: T87.89 Other complications of amputation stump (principal); I70.245 Atherosclerosis of native arteries of left leg with ulceration of other part of foot; L97.522 Non-pressure chronic ulcer of other part of left foot with fat layer exposed; I70.244 Atherosclerosis of native arteries of left leg with ulceration of heel and midfoot; L97.422 Non-pressure chronic ulcer of left heel and midfoot with fat layer exposed; I70.234 Atherosclerosis of native arteries of right leg with ulceration of heel and midfoot; L97.411 Non-pressure chronic ulcer of right heel and midfoot limited to breakdown of skin; I70.235 Atherosclerosis of native arteries of right leg with ulceration of other part of foot; L97.511 Non-pressure chronic ulcer of other part of right foot limited to breakdown of skin; L89.893 Pressure ulcer of other site, stage 3; G62.9 Polyneuropathy, unspecified; G82.50 Quadriplegia, unspecified; M86.8X7 Other osteomyelitis, ankle and foot; I10 Essential (primary) hypertension; F41.9 Anxiety disorder, unspecified; Z87.891 Personal history of nicotine dependence; Y83.5 Amputation of limb(s) as the cause of abnormal reaction of the patient, or of later complication, without mention of misadventure at the time of the procedure

== ENCOUNTER → 2020-12-10 | Outpatient (CLI) | payer MEDICARE | LOC: M.WC 13:53 | PROVIDERS: ATTEND Podiatrist Foot & Ankle Surgery | DX: T87.89 Other complications of amputation stump (principal); E11.621 Type 2 diabetes mellitus with foot ulcer; I70.245 Atherosclerosis of native arteries of left leg with ulceration of other part of foot; L97.522 Non-pressure chronic ulcer of other part of left foot with fat layer exposed; I70.244 Atherosclerosis of native arteries of left leg with ulceration of heel and midfoot; L97.422 Non-pressure chronic ulcer of left heel and midfoot with fat layer exposed; I70.234 Atherosclerosis of native arteries of right leg with ulceration of heel and midfoot; L97.411 Non-pressure chronic ulcer of right heel and midfoot limited to breakdown of skin; I70.235 Atherosclerosis of native arteries of right leg with ulceration of other part of foot; L97.511 Non-pressure chronic ulcer of other part of right foot limited to breakdown of skin; L89.893 Pressure ulcer of other site, stage 3; E11.69 Type 2 diabetes mellitus with other specified complication; M86.8X7 Other osteomyelitis, ankle and foot; E11.52 Type 2 diabetes mellitus with diabetic peripheral angiopathy with gangrene; I96 Gangrene, not elsewhere classified; E11.40 Type 2 diabetes mellitus with diabetic neuropathy, unspecified; I10 Essential (primary) hypertension; G82.50 Quadriplegia, unspecified; M10.072 Idiopathic gout, left ankle and foot; F41.9 Anxiety disorder, unspecified; Z87.891 Personal history of nicotine dependence; Y83.5 Amputation of limb(s) as the cause of abnormal reaction of the patient, or of later complication, without mention of misadventure at the time of the procedure ==

== ENCOUNTER → 2021-01-07 | Outpatient (CLI) | payer MEDICARE | LOC: M.WC 12-24 14:00 | PROVIDERS: ATTEND Podiatrist Foot & Ankle Surgery | DX: T87.89 Other complications of amputation stump (principal); E11.621 Type 2 diabetes mellitus with foot ulcer; I70.245 Atherosclerosis of native arteries of left leg with ulceration of other part of foot; L97.522 Non-pressure chronic ulcer of other part of left foot with fat layer exposed; I70.244 Atherosclerosis of native arteries of left leg with ulceration of heel and midfoot; L97.422 Non-pressure chronic ulcer of left heel and midfoot with fat layer exposed; I70.234 Atherosclerosis of native arteries of right leg with ulceration of heel and midfoot; L97.411 Non-pressure chronic ulcer of right heel and midfoot limited to breakdown of skin; I70.235 Atherosclerosis of native arteries of right leg with ulceration of other part of foot; L97.516 Non-pressure chronic ulcer of other part of right foot with bone involvement without evidence of necrosis; L89.893 Pressure ulcer of other site, stage 3; E11.69 Type 2 diabetes mellitus with other specified complication; M86.8X7 Other osteomyelitis, ankle and foot; E11.52 Type 2 diabetes mellitus with diabetic peripheral angiopathy with gangrene; I96 Gangrene, not elsewhere classified; E11.40 Type 2 diabetes mellitus with diabetic neuropathy, unspecified; G82.50 Quadriplegia, unspecified; I10 Essential (primary) hypertension; M10.072 Idiopathic gout, left ankle and foot; F41.9 Anxiety disorder, unspecified; Z87.891 Personal history of nicotine dependence; Y83.5 Amputation of limb(s) as the cause of abnormal reaction of the patient, or of later complication, without mention of misadventure at the time of the procedure ==

== ENCOUNTER → 2021-04-15 | Outpatient (CLI) | payer MEDICARE | LOC: M.WC 14:00 | PROVIDERS: ATTEND Podiatrist Foot & Ankle Surgery | DX: E11.621 Type 2 diabetes mellitus with foot ulcer (principal); I70.245 Atherosclerosis of native arteries of left leg with ulceration of other part of foot; L97.522 Non-pressure chronic ulcer of other part of left foot with fat layer exposed; L03.116 Cellulitis of left lower limb; E11.69 Type 2 diabetes mellitus with other specified complication; M86.8X7 Other osteomyelitis, ankle and foot; E11.51 Type 2 diabetes mellitus with diabetic peripheral angiopathy without gangrene; E11.40 Type 2 diabetes mellitus with diabetic neuropathy, unspecified; G82.50 Quadriplegia, unspecified; I10 Essential (primary) hypertension; M10.072 Idiopathic gout, left ankle and foot; F41.9 Anxiety disorder, unspecified; Z87.891 Personal history of nicotine dependence; Z89.412 Acquired absence of left great toe; Z89.511 Acquired absence of right leg below knee ==

== ENCOUNTER → 2021-05-13 | Outpatient (CLI) | payer MEDICARE | LOC: M.WC 13:25 | PROVIDERS: ATTEND Podiatrist Foot & Ankle Surgery | DX: E11.621 Type 2 diabetes mellitus with foot ulcer (principal); I70.245 Atherosclerosis of native arteries of left leg with ulceration of other part of foot; L97.522 Non-pressure chronic ulcer of other part of left foot with fat layer exposed; L03.116 Cellulitis of left lower limb; E11.69 Type 2 diabetes mellitus with other specified complication; M86.8X7 Other osteomyelitis, ankle and foot; E11.51 Type 2 diabetes mellitus with diabetic peripheral angiopathy without gangrene; E11.40 Type 2 diabetes mellitus with diabetic neuropathy, unspecified; G82.50 Quadriplegia, unspecified; I10 Essential (primary) hypertension; M10.072 Idiopathic gout, left ankle and foot; F41.9 Anxiety disorder, unspecified; Z87.891 Personal history of nicotine dependence; Z89.412 Acquired absence of left great toe; Z89.511 Acquired absence of right leg below knee ==

== ENCOUNTER → 2021-05-25 | Outpatient (CLI) | payer MEDICARE | LOC: M.WC 13:32 | PROVIDERS: ATTEND Podiatrist Foot & Ankle Surgery | DX: E11.621 Type 2 diabetes mellitus with foot ulcer (principal); I70.245 Atherosclerosis of native arteries of left leg with ulceration of other part of foot; L97.524 Non-pressure chronic ulcer of other part of left foot with necrosis of bone; L03.116 Cellulitis of left lower limb; E11.69 Type 2 diabetes mellitus with other specified complication; M86.8X7 Other osteomyelitis, ankle and foot; E11.51 Type 2 diabetes mellitus with diabetic peripheral angiopathy without gangrene; E11.40 Type 2 diabetes mellitus with diabetic neuropathy, unspecified; G82.50 Quadriplegia, unspecified; I10 Essential (primary) hypertension; M10.072 Idiopathic gout, left ankle and foot; F41.9 Anxiety disorder, unspecified; Z87.891 Personal history of nicotine dependence; Z89.412 Acquired absence of left great toe; Z89.511 Acquired absence of right leg below knee ==

== ENCOUNTER → 2021-06-01 | Outpatient (CLI) | payer MEDICARE ==
[~2021-06-01] MED LIST changes: +NORVASC5 MG PO; +PLAVIX 75 MG TA75 MG PO
== END ==
LOC: M.WC 13:39
PROVIDERS: ATTEND Podiatrist Foot & Ankle Surgery
DX: E11.621 Type 2 diabetes mellitus with foot ulcer (principal); I70.245 Atherosclerosis of native arteries of left leg with ulceration of other part of foot; L97.524 Non-pressure chronic ulcer of other part of left foot with necrosis of bone; L03.116 Cellulitis of left lower limb; E11.69 Type 2 diabetes mellitus with other specified complication; M86.8X7 Other osteomyelitis, ankle and foot; E11.51 Type 2 diabetes mellitus with diabetic peripheral angiopathy without gangrene; E11.40 Type 2 diabetes mellitus with diabetic neuropathy, unspecified; G82.50 Quadriplegia, unspecified; I10 Essential (primary) hypertension; M10.072 Idiopathic gout, left ankle and foot; F41.9 Anxiety disorder, unspecified; Z87.891 Personal history of nicotine dependence; Z89.412 Acquired absence of left great toe; Z89.511 Acquired absence of right leg below knee

== ENCOUNTER → 2021-06-03 | Day surgery (SDC) | payer MEDICARE ==
[2021-06-03 08:41] LABS: HEMATOCRIT 40.4 % (42.0-52.0); HEMOGLOBIN 13.4 gm/dL (14.0-18.0); MCH 27.9 pg (26.0-34.0); MCHC 33.2 g/dL (28.0-37.0); MPV 9.4 fl. (7.2-11.1); RBC 4.81 mil/uL (4.50-6.00); RDW-CV 15.3 % (10.5-14.5); WBC 6.7 thou/uL (4.0-11.0)
[2021-06-03 08:52] LABS: CALCIUM 9.4 mg/dL (8.5-10.1); CREATININE 0.9 mg/dL (0.6-1.3)
--- NOTE | 2021-06-03 09:31 | EKG ---
[place] [address] ELECTROCARDIOGRAM REPORT Name: ADRIANNA ARRIOLA Room: [facility]#: [id number] Admission: 06/03/21 Attend Phys: Sofia Wooten Discharge: Date of : 41 Date of Service: 06/03/21 08 Report #: [id number] THIS REPORT FOR: //name// [facility] Test Date: 2021-06-03 Test Time: 08:00:44 Pat Name: ADRIANNA ARRIOLA Department: Room: Gender: Director Of Business Systems: [place] : 1945 Requested By: Sofia Wooten Order Number: [id number] Annelise MD: Alvino Henderson Measurements Intervals [place] Rate: 48 P: VT: QRS: 20 QRSD: 136 T: 12 QT: 453 QTc: 405 Interpretive Statements sinus bradycardia Right bundle branch block Compared to ECG 09/20/2020 20:15:14 Sinus rhythm no longer present Electronically Signed On 06-03-2021 9:30:55 CDT by Alvino Henderson [email or web address] <ELECTRONICALLY SIGNED> By: Alvino Henderson MD, [facility] 06/03/21 0930 08 08 Alvino Henderson MD, [facility] /EPI
--- NOTE | 2021-06-03 10:36 | NUR ---
ADA AVENDAÑO CALLED DR. PEREZ'S OFFICE TO INQUIRE ABOUT ANTIBIOTICS/PAIN MEDICATION FOR THIS PT. NO SCRIPTS ON CHART OR E-SCRIPTS SENT. AWAITING CALL BACK.
--- NOTE | 2021-06-08 17:06 | PATH ---
[address] [address] PATHOLOGY RPT PROCEDURE Name: ADRIANNA ARRIOLA Room: [facility].#: [id number] Admission: 06/03/21 Date of : 41 Discharge: Report #: [id number] Path Case #: [id number] [facility] Accession Number: [id number] . 01 Material submitted: . toe - LEFT 2ND TOE. Modifiers: left, second . 01 Clinical history: . CHRONIC ULCER LEFT FOOT W/ NECROSIS OF BONE, HAMMERTOE LEFT FOOT . 02 Diagnosis: Skin, soft tissue and bone "left second toe hammertoe", amputation: - Ulceration of skin with underlying acute and chronic inflammation, fibrosis, periostitis, reactive changes of bone with focal fat necrosis. - Negative for malignancy. (ADELITA:cassidy; 06/05/2021) QMS 06/08/2021 1640 Local . 02 Electronically signed: . Cristian Ham MD, Pathologist NPI- [id number] . 01 Gross description: . The specimen is received in formalin, labeled "Adrianna Arriola, left second toe". Received is an amputated digit measuring 6.1 x 2.1 x 1.9 cm in greatest dimensions. The bone margin is smooth and concave in appearance, consistent with disarticulation. The nail is present displaying a pale miller to light miller and flaky appearance. Proximal to the nail, there is an ill-defined, irregular in contour and pink-street to dark brown lesion measuring 2.1 x 1.0 cm, which is 0.9 cm from the closest skin margin. The bone and soft tissue margins are inked black. A full-thickness longitudinal cross-section is submitted from proximal to distal aspects in cassettes A1 through A3, following decalcification. (CAA; 06/04/2021) [facility] 06/04/2021 1101 Local . 02 Pathologist provided ICD-10: L97.529, L08.9, M86.8X7 . 02 CPT . 678110, 566605 Specimen Comment: A courtesy copy of this report has been sent to [phone], [phone] Specimen Comment: [id number] Specimen Comment: Report sent to / OCTAVIO Performed at: [address] [place] [address] PATHOLOGY RPT PROCEDURE Name: ADRIANNA ARRIOLA Room: [facility]#: [id number] Admission: 06/03/21 Date of : 41 Discharge: Report #: [id number] Path Case #: [id number] [address] [facility] [address], [place], [place] [id number] MD Gregory Sprague MD Phone: [phone] Performed at: [address] [id number] MD Nicolas Gardner MD Phone: [phone]
== END | disposition home or self-care (01) ==
LOC: M.SUR 05:27
PROVIDERS: ATTEND Podiatrist Foot & Ankle Surgery
DX: M86.8X7 Other osteomyelitis, ankle and foot (principal); M20.42 Other hammer toe(s) (acquired), left foot; L97.529 Non-pressure chronic ulcer of other part of left foot with unspecified severity; L08.9 Local infection of the skin and subcutaneous tissue, unspecified; Z20.822 Contact with and (suspected) exposure to COVID-19; Z79.899 Other long term (current) drug therapy

== ENCOUNTER → 2021-06-08 | Outpatient (CLI) | payer MEDICARE | LOC: M.WC 14:00 | PROVIDERS: ATTEND Podiatrist Foot & Ankle Surgery | DX: T81.89XA Other complications of procedures, not elsewhere classified, initial encounter (principal); E11.621 Type 2 diabetes mellitus with foot ulcer; L97.522 Non-pressure chronic ulcer of other part of left foot with fat layer exposed; L03.116 Cellulitis of left lower limb; E11.69 Type 2 diabetes mellitus with other specified complication; M86.8X7 Other osteomyelitis, ankle and foot; E11.51 Type 2 diabetes mellitus with diabetic peripheral angiopathy without gangrene; E11.40 Type 2 diabetes mellitus with diabetic neuropathy, unspecified; G82.50 Quadriplegia, unspecified; I10 Essential (primary) hypertension; M10.072 Idiopathic gout, left ankle and foot; F41.9 Anxiety disorder, unspecified; Z87.891 Personal history of nicotine dependence; Z89.412 Acquired absence of left great toe; Z89.422 Acquired absence of other left toe(s); Z89.611 Acquired absence of right leg above knee; Y92.238 Other place in hospital as the place of occurrence of the external cause; Y83.8 Other surgical procedures as the cause of abnormal reaction of the patient, or of later complication, without mention of misadventure at the time of the procedure ==

== ENCOUNTER → 2021-06-15 | Outpatient (CLI) | payer MEDICARE | LOC: M.WC 13:27 | PROVIDERS: ATTEND Podiatrist Foot & Ankle Surgery | DX: T87.89 Other complications of amputation stump (principal); E11.621 Type 2 diabetes mellitus with foot ulcer; L97.522 Non-pressure chronic ulcer of other part of left foot with fat layer exposed; L03.116 Cellulitis of left lower limb; E11.69 Type 2 diabetes mellitus with other specified complication; M86.8X7 Other osteomyelitis, ankle and foot; E11.51 Type 2 diabetes mellitus with diabetic peripheral angiopathy without gangrene; E11.40 Type 2 diabetes mellitus with diabetic neuropathy, unspecified; G82.50 Quadriplegia, unspecified; I10 Essential (primary) hypertension; M10.072 Idiopathic gout, left ankle and foot; F41.9 Anxiety disorder, unspecified; Z87.891 Personal history of nicotine dependence; Z89.611 Acquired absence of right leg above knee; Y83.5 Amputation of limb(s) as the cause of abnormal reaction of the patient, or of later complication, without mention of misadventure at the time of the procedure ==

== ENCOUNTER → 2021-06-22 | Outpatient (CLI) | payer MEDICARE | LOC: M.WC 12:27 | PROVIDERS: ATTEND Podiatrist Foot & Ankle Surgery | DX: T87.89 Other complications of amputation stump (principal); E11.621 Type 2 diabetes mellitus with foot ulcer; L97.522 Non-pressure chronic ulcer of other part of left foot with fat layer exposed; L03.116 Cellulitis of left lower limb; E11.69 Type 2 diabetes mellitus with other specified complication; M86.8X7 Other osteomyelitis, ankle and foot; E11.51 Type 2 diabetes mellitus with diabetic peripheral angiopathy without gangrene; E11.40 Type 2 diabetes mellitus with diabetic neuropathy, unspecified; G82.50 Quadriplegia, unspecified; I10 Essential (primary) hypertension; M10.072 Idiopathic gout, left ankle and foot; F41.9 Anxiety disorder, unspecified; Z87.891 Personal history of nicotine dependence; Z89.611 Acquired absence of right leg above knee; Y83.5 Amputation of limb(s) as the cause of abnormal reaction of the patient, or of later complication, without mention of misadventure at the time of the procedure ==

== ENCOUNTER → 2021-06-29 | Outpatient (CLI) | payer MEDICARE | LOC: M.WC 13:29 | PROVIDERS: ATTEND Podiatrist Foot & Ankle Surgery | DX: T87.89 Other complications of amputation stump (principal); E11.621 Type 2 diabetes mellitus with foot ulcer; L97.522 Non-pressure chronic ulcer of other part of left foot with fat layer exposed; L03.116 Cellulitis of left lower limb; E11.69 Type 2 diabetes mellitus with other specified complication; M86.8X7 Other osteomyelitis, ankle and foot; E11.51 Type 2 diabetes mellitus with diabetic peripheral angiopathy without gangrene; E11.40 Type 2 diabetes mellitus with diabetic neuropathy, unspecified; G82.50 Quadriplegia, unspecified; I10 Essential (primary) hypertension; M10.072 Idiopathic gout, left ankle and foot; F41.9 Anxiety disorder, unspecified; Z87.891 Personal history of nicotine dependence; Z89.611 Acquired absence of right leg above knee; Y83.5 Amputation of limb(s) as the cause of abnormal reaction of the patient, or of later complication, without mention of misadventure at the time of the procedure ==